=== PATIENT | female | born 1945 | race African-American/Black ===

== ENCOUNTER 2016-12-25 11:41 | Day surgery (SDC) | payer MEDICARE, MEDICAID ==
[~2016-12-25] VITALS: Ht 165.1 cm; Wt 90.9 kg
[~2016-12-25 11:41] MED LIST: AMITIZA24 MCG PO; BACLOFEN20 M1 PO; COLACE100 MG PO; DILANTIN100 MG PO; DULCOLAX10 MG/SUPP RC; HYDROCODON-ACE1 EAC9 PO; K-TAB10 MEQ PO; KEPPRA1000 MG PO; KEPPRA500 MG PO; LASIX20 MG PO; LEXAPRO10 MG PO; MACROBID100 MG PO; MIRALAX17 GM PO; MIRALAX527 GM; NYSTATIN1 PWD TP; NYSTATIN15 GM TOPICAL; PROVENTIL HFA6.7 GM INH; REMERON30 MG PO; TIROSINT25 MCG PO; TYLENOL650 MG PO; [UNRECOGNIZED DRUG - OTHER] PO
[2016-12-25] MEDS ORDERED: LINZESS145 MCG PO (13:08)
[2016-12-25 13:24] VITALS: BP 134/70; Ht 165.1 cm; Wt 90.9 kg
[2016-12-25 13:24] LABS: CALC OSMOLALITY 282 mosm/kg (275-300); CALCIUM 8.9 mg/dL (8.5-10.1); CARBON DIOXIDE 34.6 mmol/L (21.0-32.0); CHLORIDE - SERUM 102 mmol/L (98-107); CREATININE - SERUM 0.6 mg/dL (0.6-1.3); GLUCOSE 99 mg/dL (74-106); SODIUM 143 mmol/L (136-145); UREA NITROGEN 7 mg/dL (7-18); eGFR NON AFRICAN AMERICAN > 90 mL/min (90-120)
--- NOTE | 2016-12-25 13:40 | NUR ---
1300 PATIENT GIVEN WARM WATER ENEMA 1500CC AND PLACED ON BEDPAN NOW. 1315 PATIENT PASSED LARGE AMOUNT BROWN LIQUID, NO FORMED STOOL NOTED 1320 PATIENT GIVEN 750 CC WARM WATER ENEMA. PLACED ON BEDPAN 1330 PATIENT PASSED BROWN LIQUID AND GIVEN 750 WARM WATER ENEMA AND PLACED ON BEDPAN.
--- NOTE | 2016-12-25 13:49 | NUR ---
1340 CLEANED PATIENT STILL PASSING BROWN LIQUID. TOLD DR. ADKINS AND NO MORE ENEMAS ORDERED
[2016-12-25 14:20] LABS: BASOPHILS 0.2 % (0.0-2.0); EOSINOPHILS 0 % (0-7); HEMATOCRIT 42.1 % (36.0-48.0); LYMPHOCYTES 23.8 % (15-50); MCH 33.1 pg (26.0-34.0); MCHC 33.3 g/dL (31.0-37.0); MCV 99.5 fL (80.0-100.0); MEAN PLATELET VOLUME 10.7 fL (7.4-10.4); MONOCYTES 7.4 % (2-11); NEUTROPHILS 68.6 % (40-80); PLATELET COUNT 136 10x3/uL (130-400); RBC 4.23 10x6/uL (4.00-5.40); RDW 12.4 % (11.5-14.5); WBC 4.5 10x3/uL (4.8-10.8)
--- NOTE | 2016-12-25 15:19 | NUR ---
1455 BACK FROM COLONOSCOPY. O2 2L N/C RESP EVEN AND NONLABORED. PASSED AIR.
--- NOTE | 2016-12-25 16:53 | NUR ---
161O WENT OVER DISCHARGE INSTRUCTIONS. PORT FLUSHED WITH HEPARIN AND SALINE AND PARK NEEDLE DCD TIP INTACT. ASSISTED WITH MAGDALENO LIFT AND DAUGHTER TOOK PATIENT HOME AT 1615 AND UNDERSTANDS DISCHARGE INSTRUCTIONS.
--- NOTE | 2016-12-25 16:53 | NUR ---
1525 TOLERATED FULL LIQUIDS. REPOSITIONED IN BED PAD CHANGED. MCCLELLAND PATENT YELLOW COLORED URINE.
--- NOTE | 2016-12-25 18:37 | OP ---
PATIENT NAME: TESS FLOOD MEDICAL RECORD: [id number] :46 LOCATION:[facility] ADMISSION DATE: SURGEON: SANGEETA ADKINS MD DATE OF OPERATION: 12/25/2016 PROCEDURE: Colonoscopy. INDICATIONS: Ms. Flood is a delightful 71-year-old woman with a history of B-cell lymphoma (followed by Dr. Levi Logan), history of hepatitis C (untreated) and chronic constipation. She has intermittent right lower quadrant abdominal pain. She has been on Linzess, MiraLax, Metamucil, prunes and Dulcolax with mixed results regarding her constipation. Her last colonoscopy was in 2010, which showed several ascending colonic lipomas. She has a family history of colon cancer (mother). She presents for outpatient colonoscopy. PREMEDICATIONS: Total IV anesthesia (propofol 580 mg). INSTRUMENT: Olympus video colonoscope. DESCRIPTION OF THE PROCEDURE AND FINDINGS: After receiving informed consent, Ms. Flood was placed in left lateral decubitus position and sedated as per anesthesia. After achieving an adequate level of sedation, digital rectal exam was performed that showed no external hemorrhoidal tags, fissures or fistulas, normal sphincter tone, no palpable rectal masses. Colonoscope was introduced per rectally and advanced to the cecum. She had a long and redundant colon. There was a copious amount of thick liquid stool and indigestible food debris throughout the colon (poor prep). In the ascending colon were several nonobstructive lipomas, biopsied. Around the hepatic flexure and distal ascending colon, there were several lipomas, nonobstructing, biopsied. Within the cecum, was a 0.25 to 0.3 cm sessile polyp removed with biopsy forcep technique. Retroflexion in the rectum yielded poor visualization of the rectum secondary to thick liquid stool and formed stool. Withdrawal time was 8 minutes. Ms. Flood tolerated the procedure well, no immediate complications. ASSESSMENT: 1. Chronic constipation with poor prep. 2. Hepatic flexure/distal ascending colon lipoma, status post biopsy. 3. Small cecal polyp, status post polypectomy. RECOMMENDATIONS: 1. Followup histopathology. 2. Fiber rich diet. 3. Recommend MiraLax b.i.d. TRANSINT:[id number] Voice Confirmation ID: [id number] DOCUMENT ID: [id number] SANGEETA ADKINS MD at 1837 CC: NETTIE MARTINEZ MD and LEVI LOGAN MD [id number] DICTATION DATE: 12/25/16 1438 VAT HOUSE LABORER: 12/25/16 1834 [facility] 12/25/16 [facility] [address] [id number]
== END 2016-12-25 16:15 | disposition home or self-care (01) ==
LOC: D.OPS 11:41
PROVIDERS: Anesthesiology
DX: D17.79 Benign lipomatous neoplasm of other sites (principal); K63.5 Polyp of colon; Z80.0 Family history of malignant neoplasm of digestive organs; K59.09 Other constipation; C85.10 Unspecified B-cell lymphoma, unspecified site; B19.20 Unspecified viral hepatitis C without hepatic coma; Z79.899 Other long term (current) drug therapy

== ENCOUNTER → 2017-09-11 09:45 | Outpatient (CLI) | payer MEDICARE, MEDICAID ==
[2016-12-25 13:24] VITALS: BMI 33.3
[~2017-09-11 09:45] MED LIST changes: +LINZESS145 MCG PO
== END | disposition home or self-care (01) ==
LOC: D.MRI 09:45
DX: R22.1 Localized swelling, mass and lump, neck (principal)

== ENCOUNTER → 2017-09-17 14:14 | Outpatient (CLI) | payer MEDICARE, MEDICAID ==
[2016-12-25 13:24] VITALS: BMI 33.3
[2017-09-17 14:59] LABS: APPEARANCE HAZY (CLEAR); BILIRUBIN NEGATIVE (NEGATIVE); COLOR YELLOW (YELLOW); GLUCOSE NEGATIVE (NEGATIVE); KETONE NEGATIVE (NEGATIVE); NITRITE POSITIVE (NEGATIVE); PROTEIN NEGATIVE (NEGATIVE); UROBILINOGEN NORMAL (NORMAL)
[2017-09-17 15:00] LABS: BACTERIA MANY /hpf (NONE SEEN); EPITHELIAL CELLS 0-5 /hpf (0-5)
== END | disposition home or self-care (01) ==
LOC: D.LABREF 14:14
PROVIDERS: Family Medicine
DX: R30.0 Dysuria (principal)

== ENCOUNTER → 2017-10-15 14:34 | Outpatient (CLI) | payer MEDICARE, MEDICAID ==
[2016-12-25 13:24] VITALS: BMI 33.3
[2017-10-15 14:45] LABS: BASOPHILS 0.2 % (0-2); EOSINOPHILS 0 % (0-7); HEMATOCRIT 42.4 % (36.0-48.0); HEMOGLOBIN 13.6 g/dL (12-16); IMMATURE GRANULOCYTES 0.2 % (0-5); LYMPHOCYTES 25.4 % (15-50); MCH 30.7 pg (26.0-34.0); MCHC 32.1 g/dL (31.0-37.0); MCV 95.7 fL (80.0-100.0); MEAN PLATELET VOLUME 10.8 fL (7.4-10.4); MONOCYTES 8.5 % (2-11); NEUTROPHILS 65.7 % (40-80); PLATELET COUNT 153 10x3/uL (130-400); RBC 4.43 10x6/uL (4.00-5.40); RDW 15.6 % (11.5-14.5); WBC 4.2 10x3/uL (4.8-10.8)
[2017-10-15 15:05] LABS: APPEARANCE HAZY (CLEAR); BILIRUBIN NEGATIVE (NEGATIVE); COLOR YELLOW (YELLOW); GLUCOSE NEGATIVE (NEGATIVE); KETONE NEGATIVE (NEGATIVE); NITRITE POSITIVE (NEGATIVE); PROTEIN TRACE mg/dL (NEGATIVE); UROBILINOGEN NORMAL (NORMAL)
[2017-10-15 15:07] LABS: BACTERIA MANY /hpf (NONE SEEN); EPITHELIAL CELLS 0-5 /hpf (0-5); RED CELLS - URINE >50 /hpf (0-5)
[2017-10-15 15:20] LABS: ALBUMIN 3.5 g/dL (3.4-5.0); ALKALINE PHOSPHATASE 124 U/L (46-116); ALT (SGPT) 15 U/L (10-68); BILIRUBIN - TOTAL 0.84 mg/dL (0.2-1.3); CALC OSMOLALITY 278 mosm/kg (275-300); CALCIUM 8.8 mg/dL (8.5-10.1); CARBON DIOXIDE 36.1 mmol/L (21.0-32.0); CHLORIDE - SERUM 99 mmol/L (98-107); CREATININE - SERUM 0.7 mg/dL (0.6-1.3); GLUCOSE 85 mg/dL (74-106); POTASSIUM - SERUM 3.1 mmol/L (3.5-5.1); PROTEIN - SERUM 7.6 g/dL (6.4-8.2); SODIUM 141 mmol/L (136-145); UREA NITROGEN 9 mg/dL (7-18); eGFR NON AFRICAN AMERICAN 87 mL/min (90-120)
== END | disposition home or self-care (01) ==
LOC: D.LABREF 14:34
PROVIDERS: Nurse Practitioner
DX: N39.0 Urinary tract infection, site not specified (principal)

== ENCOUNTER 2017-10-31 09:55 | Emergency (ER) | payer MEDICARE, MEDICAID ==
[2016-12-25 13:24] VITALS: BMI 33.3
[2017-10-31 10:44] LABS: APPEARANCE HAZY (CLEAR); BILIRUBIN NEGATIVE (NEGATIVE); GLUCOSE NEGATIVE (NEGATIVE); KETONE NEGATIVE (NEGATIVE); NITRITE POSITIVE (NEGATIVE); PROTEIN NEGATIVE (NEGATIVE)
[2017-10-31 10:46] LABS: BACTERIA MODERATE /hpf (NONE SEEN); COLOR YELLOW (YELLOW); EPITHELIAL CELLS OCC /hpf (0-5); RED CELLS - URINE OCC /hpf (0-5); WHITE CELLS - URINE 0-5 /hpf (0-5)
[2017-10-31 10:47] LABS: BASOPHILS 0.2 % (0-2); EOSINOPHILS 0 % (0-7); HEMATOCRIT 44.2 % (36.0-48.0); HEMOGLOBIN 14.5 g/dL (12-16); IMMATURE GRANULOCYTES 0.2 % (0-5); LYMPHOCYTES 24.2 % (15-50); MCH 31.5 pg (26.0-34.0); MCHC 32.8 g/dL (31.0-37.0); MCV 96.1 fL (80.0-100.0); MEAN PLATELET VOLUME 10.3 fL (7.4-10.4); MONOCYTES 11.2 % (2-11); NEUTROPHILS 64.2 % (40-80); PLATELET COUNT 147 10x3/uL (130-400); RDW 15.9 % (11.5-14.5); WBC 4.2 10x3/uL (4.8-10.8)
[2017-10-31 11:12] LABS: ALBUMIN 3.7 g/dL (3.4-5.0); ALKALINE PHOSPHATASE 99 U/L (46-116); ALT (SGPT) 14 U/L (10-68); BILIRUBIN - TOTAL 1.05 mg/dL (0.2-1.3); CALC OSMOLALITY 278 mosm/kg (275-300); CALCIUM 9.1 mg/dL (8.5-10.1); CARBON DIOXIDE 39.1 mmol/L (21.0-32.0); CHLORIDE - SERUM 98 mmol/L (98-107); CREATININE - SERUM 0.6 mg/dL (0.6-1.3); GLUCOSE 107 mg/dL (74-106); POTASSIUM - SERUM 3.1 mmol/L (3.5-5.1); SODIUM 141 mmol/L (136-145); UREA NITROGEN 7 mg/dL (7-18); eGFR NON AFRICAN AMERICAN > 90 mL/min (90-120)
[2017-10-31 12:01] LABS: CREATINE KINASE 89 UL (21-215); MAGNESIUM - SERUM 1.7 mg/dL (1.8-2.4); PRO BNP 121 pg/mL (0-125); THYROID STIMULATING HORMONE 2.21 uIU/mL (0.36-3.74)
[2017-10-31 12:03] LABS: TROPONIN-I < 0.017 ng/mL (0.000-0.060)
== END 2017-10-31 15:25 | disposition home or self-care (01) ==
LOC: D.ER 09:55
PROVIDERS: Emergency Medicine; Nurse Practitioner Family
DX: N39.0 Urinary tract infection, site not specified (principal); E87.6 Hypokalemia; E83.42 Hypomagnesemia; F03.90 Unspecified dementia, unspecified severity, without behavioral disturbance, psychotic disturbance, mood disturbance, and anxiety; Z85.72 Personal history of non-Hodgkin lymphomas

== ENCOUNTER → 2018-02-03 10:29 | Outpatient (CLI) | payer MEDICARE, MEDICAID ==
[2016-12-25 13:24] VITALS: BMI 33.3
== END | disposition home or self-care (01) ==
LOC: D.MRI 02-02 10:00
DX: C85.89 Other specified types of non-Hodgkin lymphoma, extranodal and solid organ sites (principal)

== ENCOUNTER → 2018-03-10 12:35 | Outpatient (CLI) | payer MEDICARE, MEDICAID ==
[2016-12-25 13:24] VITALS: BMI 33.3
== END | disposition home or self-care (01) ==
LOC: D.LABREF 12:35
DX: N39.0 Urinary tract infection, site not specified (principal); R33.9 Retention of urine, unspecified

== ENCOUNTER 2018-03-27 10:55 | Emergency (ER) | payer MEDICARE, MEDICAID ==
[2016-12-25 13:24] VITALS: BMI 33.3
== END 2018-03-27 13:05 | disposition home or self-care (01) ==
LOC: D.ER 10:55
DX: T85.9XXA Unspecified complication of internal prosthetic device, implant and graft, initial encounter (principal)

== ENCOUNTER → 2018-06-17 15:31 | Outpatient (CLI) | payer MEDICARE, MEDICAID ==
[2016-12-25 13:24] VITALS: BMI 33.3
[2018-06-17 16:07] LABS: APPEARANCE SL CLDY (CLEAR); BILIRUBIN NEGATIVE (NEGATIVE); COLOR YELLOW (YELLOW); GLUCOSE NEGATIVE (NEGATIVE); KETONE NEGATIVE (NEGATIVE); NITRITE NEGATIVE (NEGATIVE); PROTEIN NEGATIVE (NEGATIVE); UROBILINOGEN NORMAL (NORMAL)
[2018-06-17 16:08] LABS: BACTERIA MODERATE /hpf (NONE SEEN); EPITHELIAL CELLS 0-5 /hpf (0-5); RED CELLS - URINE 0-5 /hpf (0-5); WHITE CELLS - URINE 0-5 /hpf (0-5)
== END | disposition home or self-care (01) ==
LOC: D.LABREF 15:31
PROVIDERS: Family Medicine
DX: N39.0 Urinary tract infection, site not specified (principal)

== ENCOUNTER → 2018-07-17 16:28 | Outpatient (CLI) | payer MEDICARE, MEDICAID ==
[2016-12-25 13:24] VITALS: BMI 33.3
[2018-07-17 17:20] LABS: APPEARANCE HAZY (CLEAR); BILIRUBIN NEGATIVE (NEGATIVE); COLOR YELLOW (YELLOW); GLUCOSE NEGATIVE (NEGATIVE); KETONE NEGATIVE (NEGATIVE); NITRITE NEGATIVE (NEGATIVE); PROTEIN NEGATIVE (NEGATIVE); SPECIFIC GRAVITY 1.015 (1.005-1.020); UROBILINOGEN NORMAL (NORMAL)
[2018-07-17 17:21] LABS: BACTERIA MANY /hpf (NONE SEEN); EPITHELIAL CELLS 0-5 /hpf (0-5); RED CELLS - URINE 0-5 /hpf (0-5); WHITE CELLS - URINE >50 /hpf (0-5)
== END | disposition home or self-care (01) ==
LOC: D.LABREF 16:28
PROVIDERS: Family Medicine
DX: N39.0 Urinary tract infection, site not specified (principal)

== ENCOUNTER → 2018-10-06 16:03 | Outpatient (CLI) | payer MEDICARE, MEDICAID ==
[2016-12-25 13:24] VITALS: BMI 33.3
[2018-10-06 16:46] LABS: APPEARANCE HAZY (CLEAR); BILIRUBIN NEGATIVE (NEGATIVE); COLOR YELLOW (YELLOW); GLUCOSE NEGATIVE (NEGATIVE); KETONE NEGATIVE (NEGATIVE); NITRITE NEGATIVE (NEGATIVE); PROTEIN TRACE mg/dL (NEGATIVE); SPECIFIC GRAVITY 1.015 (1.005-1.020)
[2018-10-06 16:57] LABS: BACTERIA MANY /hpf (NONE SEEN); EPITHELIAL CELLS 0-5 /hpf (0-5); WHITE CELLS - URINE 25-50 /hpf (0-5)
== END | disposition home or self-care (01) ==
LOC: D.LABREF 16:03
PROVIDERS: Family Medicine
DX: M54.9 Dorsalgia, unspecified (principal); R41.0 Disorientation, unspecified

== ENCOUNTER → 2018-11-09 15:02 | Outpatient (CLI) | payer MEDICARE, MEDICAID ==
[2016-12-25 13:24] VITALS: BMI 33.3
[2018-11-09 15:49] LABS: APPEARANCE CLOUDY (CLEAR); COLOR YELLOW (YELLOW); NITRITE POSITIVE (NEGATIVE); PROTEIN 1+ mg/dL (NEGATIVE)
[2018-11-09 15:50] LABS: AMORPHOUS SEDIMENT <1+ /lpf (NONE SEEN); BACTERIA MANY /hpf (NONE SEEN); BILIRUBIN NEGATIVE (NEGATIVE); EPITHELIAL CELLS 0-5 /hpf (0-5); GLUCOSE NEGATIVE (NEGATIVE); KETONE NEGATIVE (NEGATIVE)
== END | disposition home or self-care (01) ==
LOC: D.LABREF 15:02
PROVIDERS: Family Medicine
DX: R33.9 Retention of urine, unspecified (principal)

== ENCOUNTER → 2019-01-10 13:33 | Outpatient (CLI) | payer MEDICARE, MEDICAID ==
[2016-12-25 13:24] VITALS: BMI 33.3
[2019-01-10 15:06] LABS: APPEARANCE CLOUDY (CLEAR); BILIRUBIN NEGATIVE (NEGATIVE); COLOR YELLOW (YELLOW); GLUCOSE NEGATIVE (NEGATIVE); KETONE NEGATIVE (NEGATIVE); NITRITE POSITIVE (NEGATIVE); PROTEIN NEGATIVE (NEGATIVE); RED CELLS - URINE RARE /hpf (0-5); WHITE CELLS - URINE 0-5 /hpf (0-5)
[2019-01-10 15:07] LABS: AMORPHOUS SEDIMENT <1+ /lpf (NONE SEEN); BACTERIA MANY /hpf (NONE SEEN); EPITHELIAL CELLS 0-5 /hpf (0-5); MUCUS <1+ /lpf (NONE SEEN)
== END | disposition home or self-care (01) ==
LOC: D.LABREF 13:33
PROVIDERS: ATTEND Family Medicine
DX: R52 Pain, unspecified (principal); Z87.440 Personal history of urinary (tract) infections

== ENCOUNTER → 2019-02-23 20:26 | Outpatient (CLI) | payer MEDICARE, MEDICAID ==
[2016-12-25 13:24] VITALS: BMI 33.3
[2019-02-23 21:16] LABS: APPEARANCE HAZY (CLEAR); BILIRUBIN NEGATIVE (NEGATIVE); COLOR YELLOW (YELLOW); GLUCOSE NEGATIVE (NEGATIVE); KETONE NEGATIVE (NEGATIVE); NITRITE POSITIVE (NEGATIVE); PROTEIN TRACE mg/dL (NEGATIVE); UROBILINOGEN NORMAL (NORMAL)
[2019-02-23 21:17] LABS: BACTERIA MANY /hpf (NONE SEEN); EPITHELIAL CELLS 0-5 /hpf (0-5); RED CELLS - URINE >50 /hpf (0-5)
== END | disposition home or self-care (01) ==
LOC: D.LABREF 20:26
PROVIDERS: ATTEND Family Medicine
DX: R30.0 Dysuria (principal); N31.9 Neuromuscular dysfunction of bladder, unspecified

== ENCOUNTER 2019-07-24 14:35 | Inpatient (IN) | payer MEDICARE, MEDICAID ==
[~2019-07-24] VITALS: Ht 165.1 cm; Wt 149.2 kg
[2019-07-24] MEDS ORDERED: AMITRIPTYLINE H50 MG PO (14:38)
[2019-07-24] MEDS ORDERED: ZYPREXA2.5 MG PO (14:40)
[2019-07-24] MEDS ORDERED: ZYLOPRIM100 MG PO (14:40)
[2019-07-24] MEDS ORDERED: DONEPEZIL HCL10 MG PO (14:41)
[2019-07-24] MEDS ORDERED: MULTI-DAY VITAM1 TAB PO (14:42)
[2019-07-24] MEDS ORDERED: MACRODANTIN50 MG PO (14:42)
[2019-07-24] MEDS ORDERED: AZO STANDARD95 MG PO (14:43)
[2019-07-24] MEDS ORDERED: PROBIOTIC1 EAC1 PO (14:44)
[2019-07-24] MEDS ORDERED: MELATONIN10 M1 PO (14:45)
[2019-07-24 15:08] LABS: BASOPHILS 0.3 % (0-2); EOSINOPHILS 0 % (0-7); HEMATOCRIT 41.8 % (36.0-48.0); HEMOGLOBIN 12.2 g/dL (12-16); LYMPHOCYTES 19.1 % (15-50); MCH 23.4 pg (26.0-34.0); MCHC 29.2 g/dL (31.0-37.0); MCV 80.1 fL (80.0-100.0); MONOCYTES 11.5 % (2-11); NEUTROPHILS 68.1 % (40-80); RBC 5.22 10x6/uL (4.00-5.40); RDW 19.3 % (11.5-14.5); WBC 3.9 10x3/uL (4.8-10.8)
[2019-07-24 15:10] LABS: PLATELET COUNT 104 10x3/uL (130-400)
[2019-07-24 15:14] LABS: APPEARANCE CLEAR (CLEAR); BILIRUBIN NEGATIVE (NEGATIVE); COLOR STRAW (YELLOW); GLUCOSE NEGATIVE (NEGATIVE); KETONE NEGATIVE (NEGATIVE); NITRITE POSITIVE (NEGATIVE); PROTEIN NEGATIVE (NEGATIVE)
[2019-07-24 15:20] LABS: BACTERIA MODERATE /hpf (NEGATIVE); EPITHELIAL CELLS NSEEN /hpf (0-5); RED CELLS - URINE NONE SEEN /hpf (0-5); WHITE CELLS - URINE 0-5 /hpf (NEGATIVE)
[2019-07-24 15:21] LABS: YEAST >1+ /hpf (NONE SEEN)
[2019-07-24 15:23] LABS: ALBUMIN 3.2 g/dL (3.4-5.0); ALKALINE PHOSPHATASE 82 U/L (46-116); ALT (SGPT) 25 U/L (10-68); CALC OSMOLALITY 285 mosm/kg (275-300); CALCIUM 8.1 mg/dL (8.5-10.1); CHLORIDE - SERUM 103 mmol/L (98-107); CREATININE - SERUM 0.6 mg/dL (0.6-1.3); GLUCOSE 101 mg/dL (74-106); POTASSIUM - SERUM 4.1 mmol/L (3.5-5.1); PROTEIN - SERUM 7.1 g/dL (6.4-8.2); SODIUM 143 mmol/L (136-145); UREA NITROGEN 15 mg/dL (7-18); eGFR NON AFRICAN AMERICAN > 90 mL/min (90-120)
[2019-07-24 16:12] VITALS: BP 151/72
--- NOTE | 2019-07-24 16:13 | NUR ---
PATIENT AWAKE AND APPEARS DROWSY, NO NEEDS NOTED; FAMILY AT BEDSIDE; UPDATED ON PLAN OF CARE AND DELAYS IN CARE; WILL CONTINUE TO MONITOR.
--- NOTE | 2019-07-24 18:19 | NUR ---
PT ARRIVED VIA BED TO ROOM. NO FAMILY PRESENT AT THIS TIME, PT STATES SHE WANTS TO WAIT UNTIL HER DAUGHTER GETS HERE TO DO MEDICATIONS BECAUSE SHE IS UNCOMFORTABLE WITH WHAT SHE TAKES RIGHT NOW. PT STATES SHE IS COMFORTABLE AND HAS NO NEEDS RIGHT NOW. REARRANGED IN BED, DENIES WANTING TO WATCH TELIVISION. PT IS A/OX4 AT THIS TIME. CHRONIC CATH IN PLACE AND WORKING WNL. CL IN REACH, SRX2. BED LOW/LOCKED
[2019-07-24] MEDS ORDERED: KEPPRA1000 MG PO (19:14)
--- NOTE | 2019-07-24 19:15 | NUR ---
RECEIVED REPORT, WILL ASSUME CARE OF PT, PT IS RESTING, DAUGHTER IN ROOM, WENT OVER MEDS, WITH DAUGHTER, BED IS LOW, SRX3, CALL LIGHT IN REACH, BED ALARM IS ON, WILL CONTINUE PLAN OF CARE
[2019-07-24 20:00] VITALS: BP 126/65
[2019-07-25] VITALS (7 sets, daily range): BP systolic 110–150; BP diastolic 55–76; BMI 33.3
--- NOTE | 2019-07-25 02:12 | NUR ---
I have reviewed this patient and I concur with the Shift Assessment completed by the Licensed Practical Nurse today this shift.
--- NOTE | 2019-07-25 02:14 | NUR ---
ADMISSION ASSESSMENT COMPLETED AT THIS TIME. PLAN OF CARE INITIATED.
[2019-07-25 05:07] LABS: BASOPHILS 0.2 % (0-2); EOSINOPHILS 0 % (0-7); HEMATOCRIT 42.3 % (36.0-48.0); HEMOGLOBIN 12.2 g/dL (12-16); IMMATURE GRANULOCYTES 0.2 % (0-5); LYMPHOCYTES 11.3 % (15-50); MCH 23.1 pg (26.0-34.0); MCHC 28.8 g/dL (31.0-37.0); MCV 80.3 fL (80.0-100.0); MONOCYTES 12.2 % (2-11); NEUTROPHILS 76.1 % (40-80); PLATELET COUNT 106 10x3/uL (130-400); RBC 5.27 10x6/uL (4.00-5.40); RDW 19.3 % (11.5-14.5); WBC 4.5 10x3/uL (4.8-10.8)
[2019-07-25 05:19] LABS: ALKALINE PHOSPHATASE 80 U/L (46-116); ALT (SGPT) 21 U/L (10-68); BILIRUBIN - TOTAL 1.38 mg/dL (0.2-1.3); CALC OSMOLALITY 283 mosm/kg (275-300); CALCIUM 8.2 mg/dL (8.5-10.1); CARBON DIOXIDE 38.7 mmol/L (21.0-32.0); CHLORIDE - SERUM 102 mmol/L (98-107); CREATININE - SERUM 0.6 mg/dL (0.6-1.3); GLUCOSE 96 mg/dL (74-106); POTASSIUM - SERUM 4.7 mmol/L (3.5-5.1); PROTEIN - SERUM 6.7 g/dL (6.4-8.2); SODIUM 143 mmol/L (136-145); eGFR NON AFRICAN AMERICAN > 90 mL/min (90-120)
[2019-07-25 06:05] LABS: UREA NITROGEN 11 mg/dL (7-18)
--- NOTE | 2019-07-25 07:36 | NUR ---
PT AWAKE AND ORIENTED AT THIS TIME, NO FAMILY PRESENT AT BEDSIDE. RN ATTEMPTED TO ACCESS PORT, WAS UNSUCCESFUL. WILL REATTEMPT. NO COMPLAINTS/CONCERNS AT THIS TIME. CL IN REACH, SRX2.
[2019-07-25 11:20] LABS: APTT 33.4 SECONDS (22.8-39.4); INR 1.12 (0.85-1.17); PROTIME 13.9 SECONDS (11.6-15.0)
--- NOTE | 2019-07-25 18:40 | NUR ---
PT HAS BEEN CONFUSED/DISORIENTED BUT PLESANTLY SO. THINKS SHE WILL GOING HOME, INFORMED HER OTHERWISE. DAUGHTER HAS CALLED MULTIPLE TIMES. NO COMPLAINTS/CONCERNS AT THIS TIME. REMOVED OLD CATHETER PER STERILE NURSING PROTOCOL, REPLACED WITH 20F CATHETER PER STERILE NURSING PROTOCOL. NO COMPLAINTS/CONCERNS VOICED. OFFERED TO PUT EGG CRATE MATRESS, PT DENIED IT AT THIS TIME. CL IN REACH,S RX2, BED ALARM ON WORKING WNL.
--- NOTE | 2019-07-25 19:27 | NUR ---
RECIEVED BEDSIDE REPORT. RECIEVED UP IN BED WITH EYES OPEN AND TV ON. ALERT AND ORIENTED X3. IV TO LEFT CHEST PORT. DSG CDI. PLEASANT AND TALKATIVE. F/C INTACT WITH CLEAR YELLOW URINE DRAINING TO BEDSIDE DRAINAGE BAG. DENIES ANY NEEDS AT THIS TIME, WILL CONT. POC.
[2019-07-26] VITALS (7 sets, daily range): BP systolic 132–155; BP diastolic 62–78
[2019-07-26 05:05] LABS: BASOPHILS 0 % (0-2); EOSINOPHILS 0 % (0-7); HEMATOCRIT 41.4 % (36.0-48.0); IMMATURE GRANULOCYTES 0.2 % (0-5); LYMPHOCYTES 15.3 % (15-50); MCH 22.9 pg (26.0-34.0); MCV 79.2 fL (80.0-100.0); MONOCYTES 10.3 % (2-11); NEUTROPHILS 74.2 % (40-80); PLATELET COUNT 109 10x3/uL (130-400); RBC 5.23 10x6/uL (4.00-5.40); RDW 19.3 % (11.5-14.5); WBC 4.3 10x3/uL (4.8-10.8)
[2019-07-26 05:43] LABS: ALBUMIN 3.1 g/dL (3.4-5.0); ALKALINE PHOSPHATASE 74 U/L (46-116); ALT (SGPT) 16 U/L (10-68); BILIRUBIN - TOTAL 1.36 mg/dL (0.2-1.3); CALC OSMOLALITY 279 mosm/kg (275-300); CALCIUM 8.4 mg/dL (8.5-10.1); CARBON DIOXIDE 37.7 mmol/L (21.0-32.0); CHLORIDE - SERUM 101 mmol/L (98-107); CREATININE - SERUM 0.6 mg/dL (0.6-1.3); GLUCOSE 112 mg/dL (74-106); MAGNESIUM - SERUM 1.5 mg/dL (1.8-2.4); POTASSIUM - SERUM 3.9 mmol/L (3.5-5.1); PROTEIN - SERUM 7.1 g/dL (6.4-8.2); SODIUM 141 mmol/L (136-145); UREA NITROGEN 8 mg/dL (7-18); eGFR NON AFRICAN AMERICAN > 90 mL/min (90-120)
--- NOTE | 2019-07-26 12:15 | NUR ---
REPORT RECIEVED. PT CURRENTLY ON 3L NC, SHE HAS A L CHEST PORT INFUSING NS @ 100. SHE HAS A CRONIC CATH DRAINING URINE. BED ALARM ON AND WORKING. BED LOCKED AND IN LOWEST POSITION, CALL LIGHT WITHIN REACH. WILL CTM
--- NOTE | 2019-07-26 15:39 | NUR ---
I have reviewed this patient and I concur with the Shift Assessment completed by the Licensed Practical Nurse today this shift.
--- NOTE | 2019-07-26 20:00 | NUR ---
ALERT CONFUSED, SITTING UP IN BED FIGITING WITH BLANKET AND MCCLELLAND CATH, RESP UNLABORED O2 IN CONTINOUS USE, SEE SHIFT ASSESSMENT CALL LIGHT IN REACH,
[2019-07-27 04:00] VITALS: BP 120/58; BP 137/76
[2019-07-27 06:32] LABS: BASOPHILS 0.3 % (0-2); EOSINOPHILS 0 % (0-7); HEMATOCRIT 40.5 % (36.0-48.0); HEMOGLOBIN 11.7 g/dL (12-16); IMMATURE GRANULOCYTES 0.3 % (0-5); MCH 22.9 pg (26.0-34.0); MCHC 28.9 g/dL (31.0-37.0); MCV 79.1 fL (80.0-100.0); MONOCYTES 9.6 % (2-11); NEUTROPHILS 71.8 % (40-80); PLATELET COUNT 103 10x3/uL (130-400); RBC 5.12 10x6/uL (4.00-5.40); WBC 3.8 10x3/uL (4.8-10.8)
[2019-07-27 06:57] LABS: ALBUMIN 2.8 g/dL (3.4-5.0); ALKALINE PHOSPHATASE 70 U/L (46-116); ALT (SGPT) 18 U/L (10-68); BILIRUBIN - TOTAL 1.58 mg/dL (0.2-1.3); CALCIUM 8.2 mg/dL (8.5-10.1); CHLORIDE - SERUM 103 mmol/L (98-107); CREATININE - SERUM 0.5 mg/dL (0.6-1.3); GLUCOSE 84 mg/dL (74-106); MAGNESIUM - SERUM 1.6 mg/dL (1.8-2.4); PROTEIN - SERUM 6.6 g/dL (6.4-8.2); SODIUM 145 mmol/L (136-145); eGFR NON AFRICAN AMERICAN > 90 mL/min (90-120)
[2019-07-27 07:04] LABS: CALC OSMOLALITY 284 mosm/kg (275-300); POTASSIUM - SERUM 3.2 mmol/L (3.5-5.1); UREA NITROGEN 5 mg/dL (7-18)
[2019-07-27 07:06] LABS: CARBON DIOXIDE 41.4 mmol/L (21.0-32.0)
[2019-07-27 08:00] VITALS: BP 155/80
--- NOTE | 2019-07-27 10:58 | NUR ---
RESTING IN BED WITH EYES OPEN, PATIENT IS SLEEPY. DR. NAIDU AT BEDSIDE FOR ROUNDS. NO DISTRESS. CALL LIGHT WITHIN REACH.
--- NOTE | 2019-07-27 11:58 | NUR ---
PATIENTS DAUGHTER SHEILA CALLED TO CHECK ON PATIENT SINCE SHE LEFT THIS AM. CONCERNED WITH PATIENT WHEEZING, THIS CHAR PULLER NOR THE PULMONOLGIST HEARD PATIENT WHEEZING DURING EITHER ASSESSMENT. RAMSEYTENT DAUGHTER WANTED THE SCDS APPLIED BECAUSE HE MOM IS SPOKEN IN LOWER LEGS AND FEET. EXPLAINED THAT THE SCDs ARE NOT GOING TO MAKE THE SWELLING GO AWAY AND THAT SHE IS ON LOVENOX FOR DVT COVERAGE. PATIENT DAUGHTER THEN STATED SHE DID NOT WANT THE SCDS. PATIENT DAUGHTER STATED SHE FOUND HER MOM THIS MORNING ASLEEP IN FRONT OF [employer]AKFAST TRAY AND REQUESTED THAT AT NOON MEAL, FOR PATIENT TO BE WOKE UP. INFORMED HER WE DO WAKE THE PATIENTS UP TO LET THEM KNOW THEIR FOOD IS THERE. PATEINTS DAUGHTER THANKED THIS CHAR PULLER AND WILL BE BACK THIS AFTERNOON.
[2019-07-27 12:04] VITALS: BP 138/72
--- NOTE | 2019-07-27 12:29 | NUR ---
PATIENT SITTING UP IN BED CONSUMING [employer], PATIENT EATING SANDWHICH. NO DISTRESS. CALL LIGHT WITHIN REACH.
[2019-07-27 13:48] VITALS: Ht 165.1 cm; Wt 149.2 kg
[2019-07-27 15:07] VITALS: BP 141/64
--- NOTE | 2019-07-27 16:16 | NUR ---
PATIENTS DAUGHTER CALLED AGAIN TO CHECK ON PATIENT. SHE WILL BE BACK UP HERE FOR DINNER MEAL.
--- NOTE | 2019-07-27 18:30 | NUR ---
PATIENTS DAUGHTER CALLED AGAIN TO CHECK ON PATIENT. NOTHING NEW TO REPORT. PATIENTS DAUGHTER KEEPS SAYING SHE IS COMING UP TO SEE THE PATIENT BUT NEVER MAKES IT DURING THIS SHIFT SO FAR. PATIENT IS RESTING WELL. NO DISTRESS.
[2019-07-27 20:00] VITALS: BP 134/74
--- NOTE | 2019-07-27 20:00 | NUR ---
ALERT AND CONFUSED RESTING IN BED DENIES PAIN, SEE ASSESSMENT, CALL LIGHT IN REACH
--- NOTE | 2019-07-27 23:15 | NUR ---
EXPLAINED BENEFITS OF COMPLIANCE TO THE BIPAP HOWEVER PT CONTINUALLY REFUSED TO WEAR.
[2019-07-28] VITALS: BP 132/70
--- NOTE | 2019-07-28 01:10 | NUR ---
PT HAS NOW REFUSED TO WEAR BIPAP AGAIN
[2019-07-28 04:00] VITALS: BP 126/71
[2019-07-28 05:49] LABS: ALBUMIN 2.7 g/dL (3.4-5.0); ALKALINE PHOSPHATASE 67 U/L (46-116); ALT (SGPT) 16 U/L (10-68); BILIRUBIN - TOTAL 1.21 mg/dL (0.2-1.3); CALCIUM 8.4 mg/dL (8.5-10.1); CHLORIDE - SERUM 102 mmol/L (98-107); CREATININE - SERUM 0.6 mg/dL (0.6-1.3); GLUCOSE 85 mg/dL (74-106); MAGNESIUM - SERUM 1.6 mg/dL (1.8-2.4); PROTEIN - SERUM 6.7 g/dL (6.4-8.2); SODIUM 144 mmol/L (136-145); eGFR NON AFRICAN AMERICAN > 90 mL/min (90-120)
[2019-07-28 06:36] LABS: CALC OSMOLALITY 284 mosm/kg (275-300); POTASSIUM - SERUM 4.1 mmol/L (3.5-5.1); UREA NITROGEN 9 mg/dL (7-18)
[2019-07-28 06:38] LABS: CARBON DIOXIDE 41.4 mmol/L (21.0-32.0)
[2019-07-28 07:41] LABS: HEMATOCRIT 40.7 % (36.0-48.0); HEMOGLOBIN 11.8 g/dL (12-16); MCH 22.9 pg (26.0-34.0); MCV 78.9 fL (80.0-100.0); PLATELET COUNT 104 10x3/uL (130-400); RBC 5.16 10x6/uL (4.00-5.40); RDW 19.1 % (11.5-14.5); WBC 3.3 10x3/uL (4.8-10.8)
[2019-07-28 09:51] VITALS: BP 103/52
[2019-07-28 09:56] LABS: LYMPHOCYTES 22 % (15-50); MONOCYTES 13 % (2-11); NEUTROPHILS 64 % (40-80); PLATELET ESTIMATE DECREASED
[2019-07-28 09:57] LABS: ANISOCYTOSIS OCC; HYPOCHROMASIA OCC
[2019-07-28 12:56] VITALS: BP 99/54
--- NOTE | 2019-07-28 14:40 | MORECARE ---
CASE MANAGEMENT DISCHARGE SUMMARY PATIENT: TESS OTERO UNIT: [id number] ADM DATE: 07/24/19 AGE: 74 : 46 SEX: F ROOM/BED: D.2101 AUTHOR: ENRIKE AKHTAR PHYSICIAN: REFERRING PHYSICIAN: ANANT ODONNELL MD DATE OF SERVICE: 07/28/19 Discharge Plan Patient Name: TESS OTERO Facility: [facility]:[place] : 1945 Planned Disposition: Anticipated Discharge Date: Discharge Date: Expected LOS: Initial Reviewer: [email or web address] Initial Review Date: 07/28/2019 Generated: 07/28/19 3:40 pm Comments DCP- Discharge Planning Updated by [id number]: Tamara Burk on 07/28/19 1:[address] Patient Name: TESS OTERO Admission Status: ER Accout number: [id number] Admission Date: 07-24-2019 : 1945 Admission Diagnosis:DISORIENTATION, UNSPECIFIED Attending: ANANT SCHMID Current LOS: 4 Anticipated DC Date: Planned Disposition: Primary Insurance: [facility] MED[employer] SOLUTIONS Discharge Planning Comments: CM WENT TO MEET WITH PATIENT ABOUT DC PLANNING. THERE IS A SILICATOR AT BEDSIDE AND STATES TO CALL PATIENT'S DAUGHTER TAMARA. SHE DOES HAVE HH WITH [facility]. CM WILL FOLLOW UP WITH DAUGHTER ABOUT DC PLANNING. Atomic Welder: Tamara Burk DCPIA - Discharge Planning Initial Assessment Updated by [id number]: Tamara Burk on 07/28/19 2:38 pm * Community resources currently utilized Home Health * Please name any agencies selected above. [facility] Patient Name: TESS OTERO Page [id number] at 1440 All edits/amendments must be made on the electronic document DICTATION DATE: 07/28/191438 SWITCH FOREMAN: TOSHIA 07/28/19 143 RPT#: [id number] DC DATE: STATUS: ADM IN [facility] [address] [place] [address] END OF REPORT
[2019-07-28 17:27] VITALS: BP 117/60
--- NOTE | 2019-07-28 19:22 | NUR ---
BEDSIDE REPORT RECEIVED FROM DAY SHIFT, PT CARE ASSUMED. INTRODUCED SELF AND WROTE NAME ON BOARD. PT LYING IN BED, WATCHING TV. DENIES ANY NEEDS AT THIS TIME. BED IN LOWEST POSITION, SR X3, CALL LIGHT WITHIN REACH. WILL CONTINUE TO MONITOR.
[2019-07-28 20:00] VITALS: BP 142/68
[2019-07-29] VITALS: BP 116/62
[2019-07-29 04:00] VITALS: BP 124/57
[2019-07-29 07:18] LABS: ALBUMIN 2.7 g/dL (3.4-5.0); ALKALINE PHOSPHATASE 70 U/L (46-116); ALT (SGPT) 16 U/L (10-68); BILIRUBIN - TOTAL 0.96 mg/dL (0.2-1.3); CALCIUM 9.2 mg/dL (8.5-10.1); CHLORIDE - SERUM 99 mmol/L (98-107); CREATININE - SERUM 0.7 mg/dL (0.6-1.3); GLUCOSE 104 mg/dL (74-106); MAGNESIUM - SERUM 1.8 mg/dL (1.8-2.4); POTASSIUM - SERUM 3.7 mmol/L (3.5-5.1); PROTEIN - SERUM 6.6 g/dL (6.4-8.2); SODIUM 142 mmol/L (136-145); eGFR NON AFRICAN AMERICAN 87 mL/min (90-120)
[2019-07-29 07:22] LABS: BASOPHILS 0.2 % (0-2); EOSINOPHILS 0 % (0-7); HEMATOCRIT 39.7 % (36.0-48.0); HEMOGLOBIN 11.3 g/dL (12-16); IMMATURE GRANULOCYTES 0.5 % (0-5); MCH 22.5 pg (26.0-34.0); MCHC 28.5 g/dL (31.0-37.0); MCV 78.9 fL (80.0-100.0); MONOCYTES 13.6 % (2-11); NEUTROPHILS 64.7 % (40-80); PLATELET COUNT 104 10x3/uL (130-400); RBC 5.03 10x6/uL (4.00-5.40); RDW 19.4 % (11.5-14.5)
[2019-07-29 07:24] LABS: WBC 4.3 10x3/uL (4.8-10.8)
[2019-07-29 07:29] LABS: CALC OSMOLALITY 282 mosm/kg (275-300); UREA NITROGEN 13 mg/dL (7-18)
[2019-07-29 07:30] LABS: CARBON DIOXIDE 44.1 mmol/L (21.0-32.0)
[2019-07-29 08:00] VITALS: BP 126/61
--- NOTE | 2019-07-29 09:14 | EC ---
PATIENT:TESS OTERO DATE OF SERVICE: 07/24/19 SEX: F MEDICAL RECORD: [id number] DATE OF : [birth year] LOCATION:D.M2 D.210 AGE OF PATIENT: 74 ADMISSION DATE: 07/24/19 REFERRING PHYSICIAN: INTERPRETING PHYSICIAN: AKIRA FRANCO MD ECHOCARDIOGRAM REPORT ECHO CHARGES 4 ECHO COMPLETE Date: 07/27/19 CLINICAL DIAGNOSIS: CHF, PULMONARY EDEMA ECHOCARDIOGRAPHIC MEASUREMENTS (adult normal given) AC root (d.<3.7cm) 2.6 cm LV Septum d (<1.2 cm> 1.1 cm Valve Excursion 1.8 cm LV Septum (systole) 1.4 cm Left Atria (s.<4.0cm> 3.0 cm LVPW d(<1.2cm) 1.2 cm RV (d.<2.3cm) 2.4 cm LVPW (sytole) 1.6 cm LV diastole(<5.6CM) 5.4 cm MV E-F(>70mm/sec) cm LV systole 4.5 cm LVOT Diameter 1.9 cm MV exc.(>10mm) cm Est.ejection fraction (50-75%) % DOPPLER: LVIT cm/sec A 101 cm/sec E 0 cm/sec LA cm/sec RVSP 27.6 mmHg LVOT 176 cm/sec AOP1/2T m/s Asc. Ao 192 cm/sec RVOT 104 cm/sec RA cm/sec PA 99 cm/sec AV Gradient Peak 14.8 mmHg AV Mean 8.8 mmHg AV Area 2.8 cm MV Gradient Peak 6.9 mmHg MV Mean 4.1 mmHg MV Area cm COMMENTS: Assistant Women'S Tennis Coach: Yonis CADENA Machinist Tool [employer]: 1 Dr. Franco TAPE# PACS Pericardial Effusion N DATE OF SERVICE: 07/27/2019 PROCEDURE: Echocardiogram. FINDINGS: 1. Left ventricular chamber size is within normal limits. Left ventricular systolic function is normal. Overall ejection fraction estimated at 55% to 60%. 2. Left atrium, right atrium, and right ventricular chamber sizes are within normal limits. 3. Valvular structures have normal structure and motion. ECHOCARDIOGRAM REPORT [id number] TESS OTERO 4. Doppler interrogation reveals only trace tricuspid regurgitation, no other valvular insufficiency or stenosis. Pulmonary systolic pressure is estimated at 28 mmHg. 5. No evidence of pericardial effusion or left ventricular thrombus. TRANSINT:[id number] Voice Confirmation ID: [id number] DOCUMENT ID: [id number] AKIRA FRANCO MD at 0914 CC: [id number] DICTATION DATE: 07/27/19 1241 INSTRUCTOR APPAREL MANUFACTURE: 07/27/19 1338 ADM IN [facility] [address] [place] [address]
[2019-07-29 12:00] VITALS: BP 142/64
[2019-07-29 16:00] VITALS: BP 113/58
--- NOTE | 2019-07-29 16:32 | NUR ---
OT NOTE: PT COMPLETED BUE AROM EXS. PT COMPLETED FACE AND HAND WASH WITH SETUP. THANK YOU, BETH BOWENS
--- NOTE | 2019-07-29 19:14 | NUR ---
BEDSIDE REPORT RECEIVED FROM DAY SHIFT, PT CARE ASSUMED. WROTE NAME ON BOARD, PT SITTING UP IN BED, AWAKE AND ALERT. FAMILY AT BEDSIDE. DENIES ANY NEEDS AT THIS TIME. BED IN LOWEST POSITION, SR X3, CALL LIGHT WITHIN REACH. WILL CONTINUE TO MONITOR.
[2019-07-29 20:00] VITALS: BP 147/74
[2019-07-30] VITALS: BP 155/86
[2019-07-30 03:07] LABS: IMMUNOGLOBULIN E 2 IU/mL (6-495)
[2019-07-30 04:30] VITALS: BP 132/75
[2019-07-30 06:37] LABS: ALBUMIN 2.8 g/dL (3.4-5.0); ALKALINE PHOSPHATASE 72 U/L (46-116); ALT (SGPT) 20 U/L (10-68); BILIRUBIN - TOTAL 0.87 mg/dL (0.2-1.3); CALC OSMOLALITY 282 mosm/kg (275-300); CALCIUM 9.3 mg/dL (8.5-10.1); CHLORIDE - SERUM 97 mmol/L (98-107); CREATININE - SERUM 0.7 mg/dL (0.6-1.3); GLUCOSE 118 mg/dL (74-106); MAGNESIUM - SERUM 1.7 mg/dL (1.8-2.4); POTASSIUM - SERUM 3.5 mmol/L (3.5-5.1); PROTEIN - SERUM 6.9 g/dL (6.4-8.2); SODIUM 142 mmol/L (136-145); UREA NITROGEN 11 mg/dL (7-18); eGFR NON AFRICAN AMERICAN 87 mL/min (90-120)
[2019-07-30 06:53] LABS: BASOPHILS 0.3 % (0-2); EOSINOPHILS 0 % (0-7); HEMATOCRIT 42.9 % (36.0-48.0); HEMOGLOBIN 11.7 g/dL (12-16); LYMPHOCYTES 17.8 % (15-50); MCH 22.6 pg (26.0-34.0); MCHC 27.3 g/dL (31.0-37.0); MONOCYTES 11.5 % (2-11); NEUTROPHILS 70.4 % (40-80); PLATELET COUNT 112 10x3/uL (130-400); RBC 5.18 10x6/uL (4.00-5.40); RDW 19.5 % (11.5-14.5)
[2019-07-30 06:54] LABS: CARBON DIOXIDE 48.4 mmol/L (21.0-32.0)
[2019-07-30 06:59] LABS: MCV 82.8 fL (80.0-100.0)
--- NOTE | 2019-07-30 08:15 | NUR ---
PT'S DAUGHTER AT BEDSIDE AND I SPOKE WITH HER AND GAVE HER AN UPDATE. PT ALERT BUT ONLY ORIENTED TO SELF. PT HAS NO FURTHER NEEDS AT THIS TIME. BED LOW. CL IN REACH.
[2019-07-30 08:20] VITALS: BP 117/53
--- NOTE | 2019-07-30 08:32 | NUR ---
PATIENTS VENOUS CO2 CONTINUES TO RAISE. HER OXYGEN LITERS HAVE BEEN 4-5 WITH SATS 96-98%. I DECREASED HER TO 3L AND AFTER 20 MINUTES, TYE CHRISTIANSON RECHECKED THE SATS AND THEY ARE 93%. I HAVE SPOKE WITH BOTH MEGAHN AND EMERALD HENRY BEDSIDE NURSE, AND FOR NOW, WE ARE GOING TO LEAVE HER AT 3L AND JUST MONITOR FOR A DROP IN SATS.
[2019-07-30 12:13] VITALS: BP 125/65
--- NOTE | 2019-07-30 12:45 | NUR ---
Nutrition Follow-up: Family reports appetite/PO intake fluctuates. Likes Ensure (strawberry or vanilla). Being seen by ST who rec to continue with mechanical soft, ground meats with gravy and thin liquids. Diet: Cardiac, Mech Soft, Ground Meats with Gravy and Thin Liquids PO intake: 25-50% Wt: 298# Last BM: 07/30 Labs reviewed Meds reviewed Continue current diet as tolerated. Boley food preferences within diet restrictions. Ensure with meals. RD following.
--- NOTE | 2019-07-30 13:36 | NUR ---
LT CHEST INFUSAPORT DRESSING CHANGED USING STERILE TECHNIQUE AND CHANGED PRN ADAPTER AND PLACED ON SWAB CAP.
--- NOTE | 2019-07-30 14:44 | NUR ---
OT NOTE:PT COMPLETED BED BATH TASKS WITH MAX A FOR LES. PT COMPLETED BUE AROM AXS. THANK YOU, BETH BOWENS
--- NOTE | 2019-07-30 15:33 | NUR ---
PT'S DAUGHTER UPSET AND SPOKE WITH ANOTHER NURSE ON THE PHONE AND STATED "I AM GETTING PISSED OFF MY MOTHER STATES SHE HAS NO RECVEIVED HER LUNCH TRAY." ANOTHER NURSE STATES TO HER THAT I(HER NURSE) IS IN ANOTHER ROOM AT THIS TIME. PT'S DAUGHTER STATES "SHE IS ALWAYS IN ANOTHER ROOM. I NEED TO SPEAK WIHT HER." THIS NURSE SPOKE WITH PT'S DAUGHTER AND STATED TO HER "SHE(PT) RECEIVED HER LUNCH TRAY AT LUNCH AND ATE A LITTLE BIT AND IS EATING MORE NOW." PT'S DAUGHTER APOLOGIZED AND STATES "I'M GONNA HAVE TO STOP LISTENING TO HER(PT) BECAUSE SHE KEEPS LYING TO ME."
[2019-07-30 16:14] VITALS: BP 118/64
--- NOTE | 2019-07-30 17:25 | NUR ---
PT BLUE PAD A LITTLE DIRT. CHANGED BLUE PAD AND MCCLELLAND CATH CARE DONE. MCCLELLAND EMPTIED.
[2019-07-30 20:00] VITALS: BP 122/59
[2019-07-31] VITALS: BP 134/82
--- NOTE | 2019-07-31 00:59 | NUR ---
DAUGHTER IN ROOM. PT ORIENTED TO SELF AND SITUATION. LEFT CHEST INFUSAPORT SALINE LOCKED AT THIS TIME. CURRENTLY WEARING 3L NC. [T HAS MCCLELLAND CATHETER WITH ORANGE URINE--SEE EMAR FOR MEDICATIONS. MODERATE WEAKNESS IN BILATERAL UPPER AND LOWER EXTREMETIES. PATIENT ABLE TO ONLY PERFORM SLIGHT MOVEMENTS. HAS CHRONIC MCCLELLAND. DENIES NEEDS AT THIS TIME. CALL LIGHT IN REACH. DOOR OPEN AND PATIENT CLOSE TO NURSES STATION FOR CONTINUAL MONITORING. CPOC.
--- NOTE | 2019-07-31 01:01 | NUR ---
RESTING WITH EYES CLOSED. NO DISTRESS NOTED. CALL LIGHT WITHIN REACH. DOOR REMAINS OPEN. CPOC.
--- NOTE | 2019-07-31 02:01 | NUR ---
I have reviewed this patient and I concur with the Shift Assessment completed by the Licensed Practical Nurse today this shift.
[2019-07-31 04:00] VITALS: BP 112/55
[2019-07-31 05:19] LABS: BASOPHILS 0.2 % (0-2); EOSINOPHILS 0 % (0-7); HEMATOCRIT 42.2 % (36.0-48.0); HEMOGLOBIN 11.6 g/dL (12-16); LYMPHOCYTES 16.9 % (15-50); MCH 22.9 pg (26.0-34.0); MCHC 27.5 g/dL (31.0-37.0); MCV 83.2 fL (80.0-100.0); MONOCYTES 12.1 % (2-11); NEUTROPHILS 70.8 % (40-80); PLATELET COUNT 102 10x3/uL (130-400); RBC 5.07 10x6/uL (4.00-5.40); RDW 19.6 % (11.5-14.5); WBC 4.4 10x3/uL (4.8-10.8)
[2019-07-31 05:41] LABS: CALC OSMOLALITY 289 mosm/kg (275-300); CALCIUM 8.8 mg/dL (8.5-10.1); CHLORIDE - SERUM 99 mmol/L (98-107); GLUCOSE 99 mg/dL (74-106); SODIUM 146 mmol/L (136-145); UREA NITROGEN 11 mg/dL (7-18)
[2019-07-31 05:44] LABS: CARBON DIOXIDE 46.2 mmol/L (21.0-32.0); CREATININE - SERUM 0.5 mg/dL (0.6-1.3); eGFR NON AFRICAN AMERICAN > 90 mL/min (90-120)
[2019-07-31 09:17] VITALS: BP 112/50
--- NOTE | 2019-07-31 12:22 | NUR ---
NEW DRESSING OVER INFUSAPORT ON LEFT CHEST. REMOVED THE FLUID FROM MCCLELLAND AND INSERTED SLIGHTLY, THEN REFILLED BALLOON WITH 10CC STERILE WATER. PATIENT TOLERATED. SHE SAID SHE FEELS FULL , THE MCCLELLAND IS UNCOMFORTABLE, PATIENT STATES. PLACED A NEW STAT LOCK.
[2019-07-31 12:29] VITALS: BP 107/47
--- NOTE | 2019-07-31 13:16 | NUR ---
RT DID AGB ON PATIENT PH 7.36 PCO2 83.7 PO2 67 PATIENT REFUSED BIPAP AT THIS TIME
--- NOTE | 2019-07-31 16:23 | NUR ---
CALLED DR DALTON ABOUT THE CRITICAL HIGH CO2 OF 83.7 HE SAID PATIENT MUST WEAR HER BIPAP. PATIENT IS SCARED TO WEAR HER BIPAP, AND I CALLED RT, SHE SAID WE MUST CALL DR NUÑEZ. MARY GAVIRIA NOW.
[2019-07-31 16:52] VITALS: BP 115/51
--- NOTE | 2019-07-31 18:21 | NUR ---
PATIENT IS WEARING HER BIPAP WITH THE ENCOURAGEMENT OF HER DAUGHTER.
[2019-07-31 20:00] VITALS: BP 140/71
--- NOTE | 2019-07-31 22:10 | NUR ---
INITIAL ROUNDS COMPLETED AT 1915 HRS. NO DISTRESSNOTED. FAMILY AT BEDSIDE and BIPAP IN USE. ASSESSMENT COMPLETED AT 1940 HRS. VSS. PT ALERT AND ORIENTED TO PERSON,PLACE AND SITUATION. REORIENTED TO TIME. BIPAP AT 40%. L CHEST INFUSAPORT SL. LUNGS DIMINISHED IN BASES BILAT. MCCLELLAND DRAINING CONCENTRATED URINE. PT DOES NOT MOVE LOWER EXTREMITIES BUT HAS A POSITIVE BABINSKI REFLEX. PM MEDS GIVEN. PT REPOSITIONED ONTO L SIDE AT 2100 HRS. PT CURRENTLY RESTING WITH EYES CLOSED. RESP EVEN AND REGULAR. BIPAP IN USE AND FAMILY AT BEDSIDE. BED ALARM ON.
[2019-08-01] VITALS: BP 138/70
--- NOTE | 2019-08-01 00:40 | NUR ---
PT REPOSITIONED IN BED PER FAMILY. RT IN ROOM. NO CHANGE IN STATUS NOTED. SR UP X2, CALL LIGHT WITHIN REACH.
--- NOTE | 2019-08-01 02:09 | NUR ---
PT REPOSITIONED ONTO BACK. FAMILY AT BEDSIDE. BIPAP IN USE. SR UP X2, CALL LIGHT WITHIN REACH.
[2019-08-01 04:00] VITALS: BP 125/70
--- NOTE | 2019-08-01 04:26 | NUR ---
PT RESTING WITH EYES CLOSED. RESP EVEN AND REGULAR. BIPAP IN USE. FAMILY AT BEDSIDE. SR UP X2,CALL LIGHT WITHIN REACH.
--- NOTE | 2019-08-01 04:41 | NUR ---
REPOSITIONED ONTO IDE. FAMILY AT BEDSIDE.
--- NOTE | 2019-08-01 05:36 | NUR ---
VSS THROUGHOUT NIGHT. PT CALMER THIS AM WEARING BIPAP. TURNED SEVERAL TIMES DURING SHIFT. FAMILY AT BEDSIDE.
--- NOTE | 2019-08-01 06:31 | NUR ---
ATTMPTED TO DRAW FORM ACCESSED PORT WITHOUT SUCCESS. LAB NOTIFIED.
[2019-08-01 06:58] LABS: BASOPHILS 0.4 % (0-2); EOSINOPHILS 0 % (0-7); HEMATOCRIT 42.8 % (36.0-48.0); HEMOGLOBIN 12.1 g/dL (12-16); IMMATURE GRANULOCYTES 0.2 % (0-5); LYMPHOCYTES 21.3 % (15-50); MCH 23.5 pg (26.0-34.0); MCHC 28.3 g/dL (31.0-37.0); MCV 83.1 fL (80.0-100.0); MONOCYTES 11.9 % (2-11); NEUTROPHILS 66.2 % (40-80); PLATELET COUNT 101 10x3/uL (130-400); RBC 5.15 10x6/uL (4.00-5.40); RDW 20.6 % (11.5-14.5); WBC 4.5 10x3/uL (4.8-10.8)
--- NOTE | 2019-08-01 07:08 | NUR ---
PT AWAKE ADN ALERT, BIPAP ON IN PLACE. FAMILY PRESENT AT BEDSIDE, NO COMPLAITNS OR CONCERNS, ALL QUESTIONS ANSWERED. CL IN REACH, SRX2.
[2019-08-01 07:24] LABS: CALC OSMOLALITY 282 mosm/kg (275-300); CALCIUM 9.3 mg/dL (8.5-10.1); CHLORIDE - SERUM 98 mmol/L (98-107); GLUCOSE 107 mg/dL (74-106); SODIUM 142 mmol/L (136-145); UREA NITROGEN 13 mg/dL (7-18)
[2019-08-01 07:25] LABS: CREATININE - SERUM 0.7 mg/dL (0.6-1.3); POTASSIUM - SERUM 3.1 mmol/L (3.5-5.1); eGFR NON AFRICAN AMERICAN 87 mL/min (90-120)
[2019-08-01 07:29] LABS: CARBON DIOXIDE 41.7 mmol/L (21.0-32.0)
[2019-08-01 08:36] VITALS: BP 115/60
--- NOTE | 2019-08-01 12:11 | NUR ---
I have reviewed this patient and I concur with the Shift Assessment completed by the Licensed Practical Nurse today this shift.
[2019-08-01 12:17] VITALS: BP 120/64
[2019-08-01 16:45] VITALS: BP 120/60
--- NOTE | 2019-08-01 18:11 | NUR ---
PT TOOK BIPAP OFF TO EAT, DR. NUÑEZ AND DR. DALTON BOTH SAID THAT WAS FINE. PT CURRENLTY BACK ON BIPAP LYING L SIDE, CLEAN AND DRY. CL IN REACH, SRX2. DAUGHTER AT BEDSIDE.
--- NOTE | 2019-08-01 18:35 | NUR ---
1800 OUT OF STAS
--- NOTE | 2019-08-01 19:10 | NUR ---
PATIENT LAYING IN BED. EYES CLOSED, CHEST RISING AND FALLING. NO DISTRESS NOTED.
[2019-08-01 20:00] VITALS: BP 117/56
[2019-08-02] VITALS: BP 133/60
[2019-08-02 04:30] VITALS: BP 106/60
[2019-08-02 04:52] LABS: CALC OSMOLALITY 284 mosm/kg (275-300); CALCIUM 8.9 mg/dL (8.5-10.1); CARBON DIOXIDE 39.3 mmol/L (21.0-32.0); CHLORIDE - SERUM 103 mmol/L (98-107); CREATININE - SERUM 0.6 mg/dL (0.6-1.3); GLUCOSE 88 mg/dL (74-106); POTASSIUM - SERUM 3.1 mmol/L (3.5-5.1); SODIUM 143 mmol/L (136-145); UREA NITROGEN 14 mg/dL (7-18); eGFR NON AFRICAN AMERICAN > 90 mL/min (90-120)
[2019-08-02 05:09] LABS: BASOPHILS 0.3 % (0-2); EOSINOPHILS 0 % (0-7); HEMATOCRIT 42.2 % (36.0-48.0); HEMOGLOBIN 11.7 g/dL (12-16); IMMATURE GRANULOCYTES 0.3 % (0-5); LYMPHOCYTES 26.1 % (15-50); MCH 22.6 pg (26.0-34.0); MCHC 27.7 g/dL (31.0-37.0); MCV 81.6 fL (80.0-100.0); MONOCYTES 13.2 % (2-11); NEUTROPHILS 60.1 % (40-80); PLATELET COUNT 103 10x3/uL (130-400); RBC 5.17 10x6/uL (4.00-5.40); RDW 20.2 % (11.5-14.5); WBC 3.6 10x3/uL (4.8-10.8)
--- NOTE | 2019-08-02 05:55 | NUR ---
I have reviewed this patient and I concur with the Shift Assessment completed by the Licensed Practical Nurse today this shift.
--- NOTE | 2019-08-02 07:30 | NUR ---
RECIEVED REPORT. RESTING IN BED WITH EYES CLOSED. DAUGHTER AT BEDSIDE. MCCLELLAND DRAINING BY GRAVITY. NO SIGNS OF DISTRESS. CONTINUE PLAN OF CARE AND SAFETY PRECAUTIONS.
[2019-08-02 08:08] VITALS: BP 110/59
[2019-08-02 11:54] VITALS: BP 103/45
[2019-08-02 16:13] VITALS: BP 107/53
--- NOTE | 2019-08-02 17:33 | NUR ---
ALERT AND ORIENTED X3. SITTING UP IN BED EATING. MCCLELLAND DRAINING BY GRAVITY. BEDBATH AND LINEN CHANGE COMPLETE. DENIES SOB OR PAIN. REPOSITION IN BED. DENIES ANY NEEDS. CONTINUE PLAN OF CARE AND SAFETY PRECAUTIONS.
[2019-08-02 20:00] VITALS: BP 107/62
[2019-08-03 00:30] VITALS: BP 158/81
--- NOTE | 2019-08-03 03:57 | NUR ---
I have reviewed this patient and I concur with the Shift Assessment completed by the Licensed Practical Nurse today this shift.
[2019-08-03 04:30] VITALS: BP 147/61
[2019-08-03 06:04] LABS: BASOPHILS 0.5 % (0-2); EOSINOPHILS 0 % (0-7); HEMATOCRIT 43.4 % (36.0-48.0); HEMOGLOBIN 12.1 g/dL (12-16); IMMATURE GRANULOCYTES 0.3 % (0-5); LYMPHOCYTES 22.7 % (15-50); MCH 22.9 pg (26.0-34.0); MCHC 27.9 g/dL (31.0-37.0); MONOCYTES 9.9 % (2-11); NEUTROPHILS 66.6 % (40-80); PLATELET COUNT 109 10x3/uL (130-400); RBC 5.29 10x6/uL (4.00-5.40); RDW 20.3 % (11.5-14.5); WBC 3.8 10x3/uL (4.8-10.8)
[2019-08-03 06:24] LABS: CALC OSMOLALITY 288 mosm/kg (275-300); CALCIUM 10.1 mg/dL (8.5-10.1); CHLORIDE - SERUM 103 mmol/L (98-107); CREATININE - SERUM 0.6 mg/dL (0.6-1.3); GLUCOSE 104 mg/dL (74-106); POTASSIUM - SERUM 3.2 mmol/L (3.5-5.1); SODIUM 144 mmol/L (136-145); UREA NITROGEN 17 mg/dL (7-18); eGFR NON AFRICAN AMERICAN > 90 mL/min (90-120)
--- NOTE | 2019-08-03 07:19 | NUR ---
REPORT RECEIVED. WILL CONTINUE WITH POC. PT CURRENTLY LYING SEMI FOWLERS. CALL LIGHT W/I REACH. PT IS RESTING AT THIS TIME. RR EVEN AND UNLABORED ON 3L 02. L.CHEST PORT IN PLACE. MCCLELLAND IN PLACE AND DRAINING URINE. NO S/S OF DISTRESS NOTED. PT DENIES ANY NEEDS. WILL CTM.
[2019-08-03 07:35] VITALS: BP 102/58
[2019-08-03 09:09] LABS: HEPATITIS C ANTIBODY >11.0 S/CO RAT (0.0-0.9)
[2019-08-03 11:07] VITALS: BP 105/57
[2019-08-03 11:13] LABS: ANA REFLEX - DIRECT Negative (Negative)
--- NOTE | 2019-08-03 13:07 | NUR ---
Nutrition Follow-up: Daughter at BS helping pt eat lunch. Pt reports eating <50% of breakfast this AM. Daughter reports that pt has not been eating well overall. Drinking ~3 Ensure/wk. Diet: Cardiac, Mechanical Soft Ground Meats with Gravy and Thin Liquids, Ensure with meals Wt: 300.8# (gain of 17.8# since 07/26) Last BM: 07/31 Labs noted: K+ 3.2 Meds noted: Lactulose, Lasix, Miralax, Floranex, Micro K, KCl -Continue current diet as tolerated. -MD may consider appetite stimulant. -RD following.
[2019-08-03 15:15] VITALS: BP 124/57
--- NOTE | 2019-08-03 17:54 | NUR ---
PT CURRENTLY EATING DINNER. PT REPOSITIONED. DAUGHTER AT BEDSIDE. PT DENIES ANY NEEDS. NO S/S OF DISTRESS NOTED. WILL CTM.
--- NOTE | 2019-08-03 18:09 | NUR ---
I have reviewed this patient and I concur with the Shift Assessment completed by the Licensed Practical Nurse today this shift.
--- NOTE | 2019-08-03 18:23 | NUR ---
UTILITY BILL COMPLAINTS INVESTIGATOR OFFERED TO PUT AIR MATTRESS ON BED, PT DAUGHTER SAID SHE WANTED TO WAIT DUE TO SHE JUST GOT THE PT COMFORTABLE AND PT WAS OUT OF BREATH.
--- NOTE | 2019-08-03 19:36 | NUR ---
BEDSIDE REPORT RECEIVED FROM DAY SHIFT, PT CARE ASSUMED. WROTE NAME ON BOARD, PT LYING IN BED WATCHING TV, AWAKE AND ALERT. DENIES ANY NEEDS AT THIS TIME. BED IN LOWEST POSITION, SR X3, CALL LIGHT WITHIN REACH. WILL CONTINUE TO MONITOR.
[2019-08-03 20:00] VITALS: BP 116/46
--- NOTE | 2019-08-03 21:15 | NUR ---
PT SITTING UP IN BED WATCHING TV. NIGHT TIME MEDS ADMINSITERED, PER ORDER. PT TURNED TO BACK. DENIES ANY NEEDS AT THIS TIME. BED IN LOWEST POSITION, SR X2, CALL LIGHT WITHIN REACH. WILL CONTINUE TO MONITOR.
[2019-08-04] VITALS: BP 112/51
[2019-08-04 04:00] VITALS: BP 103/54
--- NOTE | 2019-08-04 04:07 | NUR ---
PT LYING IN BED WITH EYES CLOSED, RR EVEN AND NONLABORED, NO S/S OF DISTRESS, AROUSES EASILY TO VOICE. DENIES ANY NEEDS AT THIS TIME. BED IN LOWEST POSITION, SR X2, CALL LIGHT WITHIN REACH. WILL CONTINUE TO MONITOR.
[2019-08-04 05:44] LABS: CALC OSMOLALITY 291 mosm/kg (275-300); CALCIUM 9.3 mg/dL (8.5-10.1); CARBON DIOXIDE 36.7 mmol/L (21.0-32.0); CHLORIDE - SERUM 105 mmol/L (98-107); CREATININE - SERUM 0.7 mg/dL (0.6-1.3); GLUCOSE 96 mg/dL (74-106); POTASSIUM - SERUM 3.2 mmol/L (3.5-5.1); SODIUM 146 mmol/L (136-145); UREA NITROGEN 16 mg/dL (7-18); eGFR NON AFRICAN AMERICAN 87 mL/min (90-120)
[2019-08-04 05:52] LABS: BASOPHILS 0.3 % (0-2); EOSINOPHILS 0.3 % (0-7); HEMATOCRIT 43.6 % (36.0-48.0); HEMOGLOBIN 12.2 g/dL (12-16); IMMATURE GRANULOCYTES 0.3 % (0-5); LYMPHOCYTES 25.1 % (15-50); MCH 22.8 pg (26.0-34.0); MCV 81.5 fL (80.0-100.0); MONOCYTES 10.6 % (2-11); NEUTROPHILS 63.4 % (40-80); PLATELET COUNT 117 10x3/uL (130-400); RBC 5.35 10x6/uL (4.00-5.40); RDW 20.7 % (11.5-14.5); WBC 3.9 10x3/uL (4.8-10.8)
[2019-08-04 08:00] VITALS: BP 116/48
--- NOTE | 2019-08-04 10:00 | NUR ---
STUDENT NURSE CALLED RN INTO THE ROOM TO REPORT FACIAL DROOPING ON THE LEFT SIDE. STRAIGHTENED PATIENT IN THE BED AND FACIAL DROOP WENT AWAY. STEEL WHEEL ENGRAVER STRENGTH EQUAL BILATERALLY, SMILE SYMETRICAL. PATIENT REPORTS NO SIGNS OF DISCOMFORT AT THIS TIME. PT WAS ABLE TO ANSWER ALL ORIENTATION QUESTIONS APPROPRIATELY.
--- NOTE | 2019-08-04 11:50 | NUR ---
RAPID RESPONSE CALLED FOR STROKE PROTOCAL. PATIENT HAD LEFT SIDED DROOP ALONG WITH SOME DROOLING. SLIGHT WEAKNESS NOTED IN THE LEFT HAND. HEAD CT ORERED ALONG WITH SOME OTHER ORDERS.
[2019-08-04 13:25] LABS: ALBUMIN 3.1 g/dL (3.4-5.0); ALKALINE PHOSPHATASE 82 U/L (46-116); ALT (SGPT) 38 U/L (10-68); BILIRUBIN - TOTAL 0.89 mg/dL (0.2-1.3); CALC OSMOLALITY 290 mosm/kg (275-300); CALCIUM 9.2 mg/dL (8.5-10.1); CARBON DIOXIDE 39.7 mmol/L (21.0-32.0); CHLORIDE - SERUM 103 mmol/L (98-107); CREATININE - SERUM 0.7 mg/dL (0.6-1.3); GLUCOSE 125 mg/dL (74-106); POTASSIUM - SERUM 3.4 mmol/L (3.5-5.1); PROTEIN - SERUM 7.1 g/dL (6.4-8.2); SODIUM 145 mmol/L (136-145); UREA NITROGEN 15 mg/dL (7-18); eGFR NON AFRICAN AMERICAN 87 mL/min (90-120)
[2019-08-04 13:29] LABS: MAGNESIUM - SERUM 1.7 mg/dL (1.8-2.4); THYROID STIMULATING HORMONE 2.43 uIU/mL (0.36-3.74)
[2019-08-04 13:59] VITALS: BP 116/59
[2019-08-04 17:19] VITALS: BP 115/84
--- NOTE | 2019-08-04 19:15 | NUR ---
REPORT RECEIVED, WILL CONTINUE POC. PATIENT IS LETHARGIC, AROUSES TO VOICE. NO S/S OF DISTRESS OBSERVED, RR EVEN AND UNLABORED ON 4L VIA NC. PATIENT HAS LT CHEST PORT, PATENT, DRSG C/D/I. PATIENT HAS MCCLELLAND DRAINING BY GRAVITY TO RT SIDE OF BED, DARK URINE NOTED. PATIENT DENIES FURTHER NEEDS AT THIS TIME. CL IN REACH, BED LOCKED AND LOWERED. WILL CTM.
[2019-08-04 20:00] VITALS: BP 139/61
--- NOTE | 2019-08-04 21:12 | NUR ---
HS MEDS GIVEN. INSTRUCTED BY DAY SHIFT NURSE EMERALD CONTRERAS TO HOLD SLEEP MEDS DUE TO PATIENT STATUS. MELATONIN HELD. PATIENT TOLERATED MEDS WELL. WILL CTM.
--- NOTE | 2019-08-04 22:00 | NUR ---
PATIENTS DAUGHTER, SHEILA, CALLED TO CHECK ON HER. SHE EXPRESSED CONCERNS ABOUT PATIENT NOT HAVING A BM FOR 5 DAYS, SAID THAT THIS IS NOT NORMAL FOR HER. ANSWERED DAUGHTERS QUESTIONS ABOUT MEDS AND CARE. SHE ASKS THAT WE CALL HER ABOUT ANY CHANGES (SHEILA [phone]).
--- NOTE | 2019-08-04 23:46 | NUR ---
ATTEMPTED TO PLACE PT ON BIPAP. PT STATES FEELING WELL AND DOES NOT WANT BIPAP AT THIS TIME. AGREES TO CALL IF SOB.
[2019-08-05] VITALS: BP 134/61
[2019-08-05 04:00] VITALS: BP 134/55
--- NOTE | 2019-08-05 04:33 | NUR ---
EMPTIED 1200ML DARK, CONCENTRATED URINE FROM MCCLELLAND
--- NOTE | 2019-08-05 04:58 | NUR ---
DAUGHTER, SHEILA, CALLED TO CHECK ON HOW PATIENTS NIGHT WENT. INFORMED HER THAT NOTHING HAS CHANGED. STILL NO BM. ADMINISTERED PRN DUCOLAX. WILL CTM. DAUGHTER EXPRESSED CONCERNS OVER PATIENT CARE AND THAT SHE DOESN'T FEEL LIKE HER CONCERNS ARE BEING TAKEN SERIOUSLY. I WROTE DOWN HER CONCERNS AND PASSED THEM ALONG TO EMERALD SANCHEZ. REASSURED HER THAT HER CONCERNS ARE BEING TAKEN SERIOUSLY AND THAT EVERYTHING WILL BE DONE TO ENSURE HER MOTHER HAS THE BEST CARE.
[2019-08-05 05:32] LABS: CALC OSMOLALITY 289 mosm/kg (275-300); CALCIUM 9.1 mg/dL (8.5-10.1); CARBON DIOXIDE 38.2 mmol/L (21.0-32.0); CHLORIDE - SERUM 105 mmol/L (98-107); CREATININE - SERUM 0.6 mg/dL (0.6-1.3); GLUCOSE 97 mg/dL (74-106); MAGNESIUM - SERUM 1.7 mg/dL (1.8-2.4); POTASSIUM - SERUM 3.2 mmol/L (3.5-5.1); SODIUM 145 mmol/L (136-145); UREA NITROGEN 14 mg/dL (7-18); eGFR NON AFRICAN AMERICAN > 90 mL/min (90-120)
[2019-08-05 05:35] LABS: BASOPHILS 0.2 % (0-2); EOSINOPHILS 0 % (0-7); HEMATOCRIT 43.2 % (36.0-48.0); HEMOGLOBIN 12.1 g/dL (12-16); IMMATURE GRANULOCYTES 0.4 % (0-5); LYMPHOCYTES 18.7 % (15-50); MCH 22.9 pg (26.0-34.0); MCV 81.8 fL (80.0-100.0); NEUTROPHILS 68.7 % (40-80); PLATELET COUNT 115 10x3/uL (130-400); RBC 5.28 10x6/uL (4.00-5.40); RDW 21.1 % (11.5-14.5); WBC 4.6 10x3/uL (4.8-10.8)
--- NOTE | 2019-08-05 07:58 | NUR ---
POTASSIUM HAS BEEN TREATED. ORDERED RECHECK THIS MORNING.
--- NOTE | 2019-08-05 08:02 | NUR ---
PATIENT IS ALERT AND AWAKE.
[2019-08-05 09:45] VITALS: BP 115/50
--- NOTE | 2019-08-05 10:41 | NUR ---
AT PATIENT BEDSIDE, DAUGHTER TOLD NURSE AND ELECTRICIAN SUPERVISOR THAT SHE GAVE THE PATIENT, HER MOTHER A BATH. THE PATIENT HAS HAD A BM, AND PASSED A LOT OF GAS. ALSO, WE ASKED IF WE COULD TURN THE PATIENT AND THE DAUGHTER AND PATIENT REFUSED, AND SAID THAT SHE HAD JUST BEEN TURNED. SCD'S PLACED ON THE PATIENT. THERE IS A RASH ON THE LEFT ARM, AND RIGHT FOOT AND ABDOMEN.
[2019-08-05 13:05] LABS: APPEARANCE CLEAR (CLEAR); COLOR DK YELLOW (YELLOW)
[2019-08-05 13:06] LABS: BILIRUBIN NEGATIVE (NEGATIVE); GLUCOSE NEGATIVE (NEGATIVE); KETONE NEGATIVE (NEGATIVE); NITRITE NEGATIVE (NEGATIVE); PROTEIN NEGATIVE (NEGATIVE); UROBILINOGEN NORMAL (NORMAL)
[2019-08-05 13:22] VITALS: BP 139/70
--- NOTE | 2019-08-05 13:32 | NUR ---
Nutrition Follow-up: Spoke with pt and daughter. Reports PO intake somewhat improved; eating >=50% of meals. Daughter reports that pt is not drinking as much Ensure. She requests that we d/c them with meals and they will request them PRN. Small BM this AM. Diet: Cardiac, Mech Soft Ground Meats with Gravy, Thin Liquids, Ensure TID Wt: 301# Labs noted: K+ 3.0, Mg 1.7, Ammonia 46 Meds noted: Lactulose (increased back to BID), Dulcolax, Miralax, Floranex, Lasix, KDur, Micro K, MagOx -Continue current diet as tolerated; will d/c Ensure per request. -[place] food preferences within diet restrictions. -RD following.
[2019-08-05 17:36] VITALS: BP 135/75
--- NOTE | 2019-08-05 19:20 | NUR ---
PT CARE ASSUMED. RR EVEN AND UNLABORED. NO S/S OF DISTRESS NOTED AT THIS TIME. NO VOICED C/O OR CONCERNS AT THIS TIME. CALL LIGHT IN REACH. WILL CPOC.
[2019-08-05 20:00] VITALS: BP 144/66
--- NOTE | 2019-08-05 23:05 | NUR ---
PROVIDED LINEN CHANGE FOR JAXONG BM.
--- NOTE | 2019-08-05 23:51 | NUR ---
PT AWAKE REFUSED TO COMPLY WITH APPLICATION OF BILEVEL RR 24 EQUALATERAL EXCURSION FIO2 3,5 NC SPO2 94% . ZERO CYANOSIS NO IMMEDIATE S/S RESP DISTRESS
[2019-08-06] VITALS: BP 124/83
[2019-08-06 04:00] VITALS: BP 161/65
[2019-08-06 06:04] LABS: BASOPHILS 0.4 % (0-2); EOSINOPHILS 0 % (0-7); HEMATOCRIT 44.3 % (36.0-48.0); HEMOGLOBIN 12.7 g/dL (12-16); LYMPHOCYTES 15.6 % (15-50); MCH 23.4 pg (26.0-34.0); MCHC 28.7 g/dL (31.0-37.0); MCV 81.6 fL (80.0-100.0); MONOCYTES 9.8 % (2-11); NEUTROPHILS 74.2 % (40-80); PLATELET COUNT 116 10x3/uL (130-400); RBC 5.43 10x6/uL (4.00-5.40); RDW 21.7 % (11.5-14.5); WBC 5.4 10x3/uL (4.8-10.8)
[2019-08-06 06:25] LABS: CALC OSMOLALITY 291 mosm/kg (275-300); CALCIUM 9.2 mg/dL (8.5-10.1); CARBON DIOXIDE 34.8 mmol/L (21.0-32.0); CHLORIDE - SERUM 107 mmol/L (98-107); CREATININE - SERUM 0.7 mg/dL (0.6-1.3); GLUCOSE 111 mg/dL (74-106); SODIUM 145 mmol/L (136-145); UREA NITROGEN 17 mg/dL (7-18); eGFR NON AFRICAN AMERICAN 87 mL/min (90-120)
[2019-08-06 06:27] LABS: POTASSIUM - SERUM 3.5 mmol/L (3.5-5.1)
[2019-08-06 08:32] VITALS: BP 156/74
--- NOTE | 2019-08-06 09:55 | NUR ---
SPOKE WITH GEE BAH ABOUT AMMONIA LEVEL RECHECK. SHE STATES AND HANNAH WRIGHT ARE MANAGING THAT AND TO SPEEAK WITH THEM. GEE BAH ALSO ASKED ABOUT PT'S RASH IO STATED TO HER ITS STILL REALLY RED SHE ASKED IF PT WAS GETTING BENADRYL STILL AND I STATED DR. NAIDU PUT THAT AND ELAVIL ON HOLD BECAUSE HE DOESN'T WANT HER TO BE DROWSY. SHE STATES PT DOES NOT NEED TO BE ITCHING AND IN PAIN FROM RASH EITHER I AGREED. SHE STATES SHE WILL LOOK INTO IT.
--- NOTE | 2019-08-06 12:12 | NUR ---
UNABLE TO DO LINE DRAW FOR AMMONIA LEVEL. SPOKE WITH LAB AND THEY ARE SUPPOSSED TO COME DRAW PT'S LAB.
--- NOTE | 2019-08-06 13:38 | NUR ---
PT'S DAUGHTER CALLED AND I SPOKE WITH HER AND GAVE HER DETAILED "UPDATE" WITH DOCTOR'S NOTES, LABS, MEDICATIONS, AND PT'S BEHAVIOR AND CONFUSION TODAY. PT ASKING EARLIER THIS AM IF P.T. WILL WORK WITH PT TODAY I STATED TO HER I WOULD FIND OUT. SHE STATES PT USES A MAGDALENO LIFT AT HOME. I SPOKE WITH P.T. AND THEY STATED THEY ARE NOT ALLOWED TO USE [employer] LIFTS PER THEIR COMPANY. I STATED THIS TO PT'S DAUGHTER AND SHE VERBALIZED UNDERSTANDING AND SHE STATED SHE WISH SHE WOULD HAVE BEEN TOLD ABOUT THIS SOONER CAUSE SHE UNDERSTANDS. I APOLOGIZED. SHE ASKED IF I COULD PLACE SCD'S BACK ON PT'S LEGS AND I STATED I WOULD.
--- NOTE | 2019-08-06 13:56 | NUR ---
SCD'S PLACED ON PT.
--- NOTE | 2019-08-06 14:07 | NUR ---
SCD'S PLACED BILATERALLY ON PT'S LEGS AND PT CHECKED AND IS STILL CLEAN.
[2019-08-06 14:52] VITALS: BP 137/89
--- NOTE | 2019-08-06 17:20 | MORECARE ---
CASE MANAGEMENT DISCHARGE SUMMARY PATIENT: TESS OTERO UNIT: [id number] ADM DATE: 07/24/19 AGE: 74 : 46 SEX: F ROOM/BED: D.2811 AUTHOR: ENRIKE AKHTAR PHYSICIAN: REFERRING PHYSICIAN: ANANT ODONNELL MD DATE OF SERVICE: 08/06/19 Discharge Plan Patient Name: TESS OTERO Facility: [facility]:[place] : 1945 Planned Disposition: Home with Home Health Anticipated Discharge Date: Discharge Date: Expected LOS: Initial Reviewer: [id number] Initial Review Date: 07/28/2019 Generated: 08/06/19 6:20 pm DCP- Discharge Planning Updated by [id number]: Tamara Burk on 07/28/19 1:[address] Patient Name: TESS OTERO Admission Status: ER Accout number: [id number] Admission Date: 07-24-2019 : 1945 Admission Diagnosis:DISORIENTATION, UNSPECIFIED Attending: ANANT SCHMID Current LOS: 4 Anticipated DC Date: Planned Disposition: Primary Insurance: [facility] MEDICARE SOLUTIONS Discharge Planning Comments: CM WENT TO MEET WITH PATIENT ABOUT DC PLANNING. THERE IS A MEDICAL CLAIMS EXAMINER AT BEDSIDE AND STATES TO CALL PATIENT'S DAUGHTER TAMARA. SHE DOES HAVE HH WITH [facility]. CM WILL FOLLOW UP WITH DAUGHTER ABOUT DC PLANNING. Rn Midwife: Tamara Burk DCPIA - Discharge Planning Initial Assessment Updated by [email or web address]: Tamara Burk on 07/28/19 2:38 pm * Community resources currently utilized Home Health * Please name any agencies selected above. [facility] Coverage Notice Reviewer: [id number] Asha Chavez Notice Issued Date-Time: 08/06/2019 14:40 Notice Type: Patient Choice Letter Notice Delivered To: Family Member Relationship to Patient: Daughter Computing Machine Operator Name: TAMARA OTERO Delivery Method: PHONE - Phone [place] Days: Prior Verbal Notification: Recipient Understood Notice: Yes Recipient Signature: Med Rec Note Co-signed by Attending: Coverage Notice Comment: [facility] Last DP export: 07/28/19 1:40 p Patient Name: TESS OTERO Page 82978 at 1720 All edits/amendments must be made on the electronic document DICTATION DATE: 08/06/191719 MOLD DESIGNER: TOSHIA 08/06/191719 RPT#: [id number] DC DATE: STATUS: ADM IN [facility] [address] [place] [address] END OF REPORT
--- NOTE | 2019-08-06 17:29 | MORECARE ---
CASE MANAGEMENT DISCHARGE SUMMARY PATIENT: TESS OTERO UNIT: [id number] ADM DATE: 07/24/19 AGE: 74 : 46 SEX: F ROOM/BED: D.8880 AUTHOR: GIOVANA,DOC PHYSICIAN: REFERRING PHYSICIAN: ANANT ODONNELL MD DATE OF SERVICE: 08/06/19 Discharge Plan Patient Name: TESS OTERO Facility: [facility]:[place] : 1945 Planned Disposition: Home with Home Health Anticipated Discharge Date: Discharge Date: Expected LOS: Initial Reviewer: [id number] Initial Review Date: 07/28/2019 Generated: 08/06/19 6:29 pm Comments DCP- Discharge Planning Updated by [id number]: Saravanan Chavez on 08/06/19 4:[address] Patient Name: TESS OTERO Encounter No: [id number] : 1945 Primary Insurance: [facility] MEDIC[facility] SOLUTIONS Anticipated DC Date: Planned Disposition: Home with Home Health External Planned Provider: [facility] DCP follow-up note: CM SPOKE TO PT IN ROOM WHO REPORTS PLAN TO RETURN HOME WITH HER DAUGHTER WHO CARES FOR HER AT HOME, PT WILL REQUIRE AMBULANCE TRANPSPORT TO GET HOME. CM CALLED AND SPOKE TO PT'S DAUGHTER, TAMARA GOMEZ, WHO REPORTS TO BE PT'S 24 HOUR CAREGIVER AT HOME. THEY ALSO HAVE [facility] THAT THEY WANT RESUMED AT DISCHARGE. CHOICE LETTER COMPLETED. TAMARA DENIES FURHTER DISCHARGE NEEDS AND REPORTS THAT DR. NAIDU IS GOING TO WORK ON GETTING PT A BIPAP. CM REVIEWED CHART, PT'S CURRENT BLOOD GASSES DO NOT QUALIFY FOR TRILOGY MACHINE. CM EXPLAINED TO TAMARA THAT FURHTER TESTING RESULTS MAY BE NEEDED AND THAT THE DOCTOR WILL ORDER NECESSARY EQUIPMENT FOR CM TO ARRANGE AND THAT INSURANCE WOULD COVER IF PT QUALIFIES BY TEST RESULTS. TAMARA REPORTS UNDERSTANDING. PT TO TRANSPORT HOME VIA AMBULANCE. THEY USE [employer] LIFT FOR PT AT HOME AND HAVE WHEELCHAIR, POWER WHEELCHAIR, BEDSIDE COMMODE AND HOSPITAL BED. BONITA SPOKE TO EDD CLEMONS [facility] WHO REPORTS THEY WILL RESUME PT'S HOME CARE AT DISCHARGE. PT WILL DISCHARGE HOME WITH DAUGHTER WHO IS PT'S CAREGIVER. TO RESUME HOME HEALTH, NOTIFY [facility] AT [phone], FAX DISCHARGE INFORMATION TO [facility] AT [phone]. PT TO TRANPSORT HOME VIA AMBULANCE. Saravanan Chavez, CASE MANAGEMENT DCP- Discharge Planning Updated by [id number]: Tamarapaulina Burk on 07/28/19 1:[address] Patient Name: TESS OTERO Admission Status: ER Accout number: [id number] Admission Date: 07-24-2019 : 1945 Admission Diagnosis:DISORIENTATION, UNSPECIFIED Attending: ANANT SCHMID Current LOS: 4 Anticipated DC Date: Planned Disposition: Primary Insurance: [facility] MEDIC[facility] SOLUTIONS Discharge Planning Comments: CM WENT TO MEET WITH PATIENT ABOUT DC PLANNING. THERE IS A GAS PLUMBER AT BEDSIDE AND STATES TO CALL PATIENT'S DAUGHTER TAMARA. SHE DOES HAVE HH WITH [facility]. CM WILL FOLLOW UP WITH DAUGHTER ABOUT DC PLANNING. Carriage Setter: Tamarapaulina Burk DCPIA - Discharge Planning Initial Assessment Updated by [id number]: Saravanan Chavez on 08/06/19 5:21 pm * Is the patient Alert and Oriented? Yes * How many steps to enter\exit or inside your home? NONE * PCP DR. MARTINEZ * Pharmacy [facility] * Preadmission Environment Home with Family * ADLs Partial Dependent * Partial ADLs (Assistance needed) Ambulation Bathing Dressing Medication Management Toileting Transfers * Equipment Bedside [facility] Bed Nelly Lift Power Chair or Electric Scooter Wheelchair * Other Equipment NO MEDICAL EQUIPMENT PROVIDER PREFERENCE * List name and contact numbers for known caregivers / representatives who currently or will assist patient after discharge: TAMARA OTERO, DTR, * Verbal permission to speak to the caregivers and representatives has been obtained from the patient. Yes * Community resources currently utilized Home Health * Please name any agencies selected above. [facility] * Additional services required to return to the preadmission environment? No * Can the patient safely return to the preadmission environment? Yes * Has this patient been hospitalized within the prior 30 days at any hospital? No External Providers External Provider: [facility] Next Contact Date: 08/06/2019 Service Request Date: Service Type: Resolution: Reviewer: Comments: Coverage Notice Reviewer: [id number] - Saravanan Chavez Notice Issued Date-Time: 08/06/2019 14:40 Notice Type: Patient Choice Letter Notice Delivered To: Family Member Relationship to Patient: Daughter Tennis Court Attendant Name: TAMARA OTERO Delivery Method: PHONE - Phone [place] Days: Prior Verbal Notification: Recipient Understood Notice: Yes Recipient Signature: Med Rec Note Co-signed by Attending: Coverage Notice Comment: [facility] Last DP export: 08/06/19 4:21 p Patient Name: TESS OTERO Page 48383 at 1729 All edits/amendments must be made on the electronic document DICTATION DATE: 08/06/191728 SHOE REPAIRER APPRENTICE: TOSHIA 08/06/191728 RPT#: [id number] CO DATE: STATUS: ADM IN [facility] [address] [place] [address] END OF REPORT
--- NOTE | 2019-08-06 17:43 | NUR ---
I have reviewed this patient and I concur with the Shift Assessment completed by the Licensed Practical Nurse today this shift.
--- NOTE | 2019-08-06 19:20 | NUR ---
REPORT RECIEVED AND ROUNDING COMPLETE. PATIENT LAYING IN BED IN SUPINE POSITION. EYES CLOSED AND BREATHING SHALLOW AND EVEN. PATIENT IS RECIEVEING O2 AT 4.5L VIA [employer] CANN[employer]. PATIENT DAUGHTER AT BEDSIDE. PATIENT IS SHOWING NO S/SX OF DISTRESS AT THIS TIME. CALL LIGHT WITHIN REACH AND BED IN LOWEST LOCKED POSITION.
[2019-08-06 20:00] VITALS: BP 157/58
[2019-08-07] VITALS: BP 153/82
[2019-08-07 04:00] VITALS: BP 144/75
[2019-08-07 06:29] LABS: BASOPHILS 0.7 % (0-2); EOSINOPHILS 0 % (0-7); HEMATOCRIT 44.6 % (36.0-48.0); HEMOGLOBIN 12.7 g/dL (12-16); IMMATURE GRANULOCYTES 0.2 % (0-5); LYMPHOCYTES 17.1 % (15-50); MCH 23.3 pg (26.0-34.0); MCHC 28.5 g/dL (31.0-37.0); MONOCYTES 12.4 % (2-11); NEUTROPHILS 69.6 % (40-80); PLATELET COUNT 128 10x3/uL (130-400); RBC 5.44 10x6/uL (4.00-5.40); RDW 22.1 % (11.5-14.5); WBC 5.6 10x3/uL (4.8-10.8)
[2019-08-07 06:42] LABS: CALC OSMOLALITY 292 mosm/kg (275-300); CALCIUM 9.2 mg/dL (8.5-10.1); CARBON DIOXIDE 33.4 mmol/L (21.0-32.0); CHLORIDE - SERUM 107 mmol/L (98-107); CREATININE - SERUM 0.7 mg/dL (0.6-1.3); GLUCOSE 109 mg/dL (74-106); MAGNESIUM - SERUM 1.9 mg/dL (1.8-2.4); POTASSIUM - SERUM 3.4 mmol/L (3.5-5.1); SODIUM 146 mmol/L (136-145); UREA NITROGEN 16 mg/dL (7-18); eGFR NON AFRICAN AMERICAN 87 mL/min (90-120)
--- NOTE | 2019-08-07 07:00 | NUR ---
RECEIVED REPORT. ASSUMED CARE OF PATIENT. PATIENT RESTING IN BED WITH EYES OPEN. PATIENT 1ST STEP OVERLAY PATENT. NO DISTRESS. CALL LIGHT WITHIN REACH. NO FAMILY AT BEDSIDE.
--- NOTE | 2019-08-07 09:00 | NUR ---
CAREGIVE AT BEDSIDE PROVIDING AM CARES AND PATIENT TURNED AT THIS TIME. CALL LIGHT WITHIN REACH.
[2019-08-07 10:35] VITALS: BP 131/71
--- NOTE | 2019-08-07 11:24 | NUR ---
SPOKE WITH AND PATIENT WILL BE TRANSFERRED TO [facility] PER THE FAMILY REQUEST, BUT ALSO DUE TO CONDITION DETERIORATING. KELSEA WITH CASE MANAGEMENT NOTIFIED.
--- NOTE | 2019-08-07 12:36 | NUR ---
NEW ORDER RECIEVED TO START DITROPAN FOR BLADDER SPASMS. PATIENTS BACLOFEN IS ON HOLD AND NOW HAVING SPASMS WITH HER MCCLELLAND CATHETER CAUSING HER MCCLELLAND CATHETER TO LEAK URINE. ORDER PLACED TO SYSTEM.
[2019-08-07 12:50] VITALS: BP 106/68
--- NOTE | 2019-08-07 13:04 | MORECARE ---
CASE MANAGEMENT DISCHARGE SUMMARY PATIENT: TESS OTERO UNIT: [id number] ADM DATE: 07/24/19 AGE: 74 : 46 SEX: F ROOM/BED: D.0010 AUTHOR: GIOVANA,DOC PHYSICIAN: REFERRING PHYSICIAN: ANANT ODONNELL MD DATE OF SERVICE: 08/07/19 Discharge Plan Patient Name: TESS OTERO Facility: [facility]:[place] : 1945 Planned Disposition: Home with Home Health Anticipated Discharge Date: Discharge Date: Expected LOS: Initial Reviewer: [id number] Initial Review Date: 07/28/2019 Generated: 08/07/19 2:04 pm Comments DCP- Discharge Planning Updated by [email or web address]: Aggie Hyatt on 08/07/19 11:[address] LATE ENTRY 1100- 1230 PATIENT'S FAMILY VOICING CONCERNS THAT PATIENT HAD NOT IMPROVED SINCE ADMISSION REPORTED BY PRIMARY NURSE, DMITRI. SHE NOTIFIED THE NURSING COMMERCIAL REPORTER OF POSSIBLE TRANSFER REQUEST TO [facility]. PATIENT'S NEURO STATUS HAS NOT IMPROVED. NO NEURO SERVICE AVAILABLE AT [facility]. PATIENT ALSO HAS A RASH THAT HAS WORSEN. CAUSE UNKNOWN AND RASH HAS NOT RESPONDED TO TREATMENT. FAMILY SPOKE W/ DR NAIDU. DR SANTO SPOKE WITH THE FAMILY WHEN HE ROUNDED. BONITA, RECEIVED REQUEST FOR TRANSFER TO [facility]. BONITA REQUESTED FILMS ON DISC. APPROPRIATE FORMS OBTAINED. TARAH, NURSING COMMERCIAL REPORTER, IS COGNIZANT OF REQUEST. 1200 TC TO EASY ADMIT, TO FACILITATE THE TRANSFER. BONITA SPOKE W/ DAVIN. DISCUSSED THE REFERRAL AND PROVIDED REQUESTED INFORMATION. BONITA FAXED FACE SHEET W/ DR SANTO'S CONTACT PHONE NUMBER TO [phone]. DCP- Discharge Planning Updated by [id number]: Saravanan Chavez on 08/06/19 4:[address] Patient Name: TESS OTERO Encounter No: [id number] : 1945 Primary Insurance: [facility] MEDICARE SOLUTIONS Anticipated DC Date: Planned Disposition: Home with Home Health External Planned Provider: [facility] DCP follow-up note: CM SPOKE TO PT IN ROOM WHO REPORTS PLAN TO RETURN HOME WITH HER DAUGHTER WHO CARES FOR HER AT HOME, PT WILL REQUIRE AMBULANCE TRANPSPORT TO GET HOME. CM CALLED AND SPOKE TO PT'S DAUGHTER, TAMARA GOMEZ, WHO REPORTS TO BE PT'S 24 HOUR CAREGIVER AT HOME. THEY ALSO HAVE [facility] THAT THEY WANT RESUMED AT DISCHARGE. CHOICE LETTER COMPLETED. TAMARA DENIES FURHTER DISCHARGE NEEDS AND REPORTS THAT DR. NAIDU IS GOING TO WORK ON GETTING PT A BIPAP. CM REVIEWED CHART, PT'S CURRENT BLOOD GASSES DO NOT QUALIFY FOR TRILOGY MACHINE. CM EXPLAINED TO TAMARA THAT FURHTER TESTING RESULTS MAY BE NEEDED AND THAT THE DOCTOR WILL ORDER NECESSARY EQUIPMENT FOR CM TO ARRANGE AND THAT INSURANCE WOULD COVER IF PT QUALIFIES BY TEST RESULTS. TAMARA REPORTS UNDERSTANDING. PT TO TRANSPORT HOME VIA AMBULANCE. THEY USE [employer] L[employer] FOR PT AT HOME AND HAVE WHEELCHAIR, POWER WHEELCHAIR, BEDSIDE COMMODE AND HOSPITAL BED. CM SPOKE TO EDD OF [facility] WHO REPORTS THEY WILL RESUME PT'S HOME CARE AT DISCHARGE. PT WILL DISCHARGE HOME WITH DAUGHTER WHO IS PT'S CAREGIVER. TO RESUME HOME HEALTH, NOTIFY [facility] AT [phone], FAX DISCHARGE INFORMATION TO [facility] AT [phone]. PT TO TRANPSORT HOME VIA AMBULANCE. Saravanan Chavez, CASE MANAGEMENT DCP- Discharge Planning Updated by [id number]: Tamara Bhargavi on 07/28/19 1:[address] Patient Name: TESS OTERO Admission Status: ER Accout number: [id number] Admission Date: 07-24-2019 : 1945 Admission Diagnosis:DISORIENTATION, UNSPECIFIED Attending: ANANT SCHMID Current LOS: 4 Anticipated DC Date: Planned Disposition: Primary Insurance: [facility] MEDICARE SOLUTIONS Discharge Planning Comments: CM WENT TO MEET WITH PATIENT ABOUT DC PLANNING. THERE IS A VARNISH BLENDER AT BEDSIDE AND STATES TO CALL PATIENT'S DAUGHTER TAMARA. SHE DOES HAVE HH WITH [facility]. CM WILL FOLLOW UP WITH DAUGHTER ABOUT DC PLANNING. Kiln Door Builder: Tamara Burk DCPIA - Discharge Planning Initial Assessment Updated by [id number]: Saravanan Chavez on 08/06/19 5:21 pm * Is the patient Alert and Oriented? Yes * How many steps to enter\exit or inside your home? NONE * PCP DR. MARTINEZ * Pharmacy [facility] * Preadmission Environment Home with Family * ADLs Partial Dependent * Partial ADLs (Assistance needed) Ambulation Bathing Dressing Medication Management Toileting Transfers * Equipment Bedside [facility] Bed Nelly Lift Power Chair or Electric Scooter Wheelchair * Other Equipment NO MEDICAL EQUIPMENT PROVIDER PREFERENCE * List name and contact numbers for known caregivers / representatives who currently or will assist patient after discharge: TAMARA OTERO, DTR, * Verbal permission to speak to the caregivers and representatives has been obtained from the patient. Yes * Community resources currently utilized Home Health * Please name any agencies selected above. [facility] * Additional services required to return to the preadmission environment? No * Can the patient safely return to the preadmission environment? Yes * Has this patient been hospitalized within the prior 30 days at any hospital? No Coverage Notice Reviewer: [id number] Asha Chavez Notice Issued Date-Time: 08/06/2019 14:40 Notice Type: Patient Choice Letter Notice Delivered To: Family Member Relationship to Patient: Daughter Sales Operations Associate Name: TAMARA OTERO Delivery Method: PHONE - Phone [place] Days: Prior Verbal Notification: Recipient Understood Notice: Yes Recipient Signature: Med Rec Note Co-signed by Attending: Coverage Notice Comment: [facility] Last DP export: 08/06/19 4:29 p Patient Name: TESS OTERO Page 98207 at 1304 All edits/amendments must be made on the electronic document DICTATION DATE: 08/07/19 1304 NUISANCE WILDLIFE TRAPPER: TOSHIA 08/07/19 1304 RPT#: [id number] DC DATE: STATUS: ADM IN [facility] [address] [place] [address] END OF REPORT
--- NOTE | 2019-08-07 13:30 | NUR ---
SPOKE WITH SAE FROM [facility]. HISTORY GIVEN ON PATIENT. SAE NUMBER IS [phone] AT [facility]. CALLED AND LEFT VOICE MESSAGE ON HIS PHONE TO LET HIM KNOW THAT [facility] WOULD BE CALLING HIM SOON TO HAVE THE MD TO [facility] PHONE CONVERSATION FOR TRANSFER.
--- NOTE | 2019-08-07 13:34 | NUR ---
DRESSING CHANGED TO LEFT CHEST PORT PATIENT HAD BEEN PICKING AT THE OTHER DRESSING AND THE EDGES WERE NOT SECURED. ATTEMPTED TO DRAW BLOOD CULTURES FROM PORT AT THIS TIME, UNSUCCESSFUL. PORT FLUSHED X 3 BUT WILL NOT PULL.
--- NOTE | 2019-08-07 13:53 | NUR ---
WAITING FOR WOOD COATER TO BRING NEW 1ST STEP OVERLAY TO UNIT.
--- NOTE | 2019-08-07 14:57 | NUR ---
RECEIVED CALL FROM SAE AT [facility]. THEY WILL ACCEPT THE PATIENT AND SHE WILL CALL WHEN THEY HAVE A BED NUMBER. SAE IS FAXING US A PAPER TO SIGN STATING [facility] WILL ACCEPT THE PATIENT BACK UPON COMPLETION OF TREATMENT FROM [facility] IF NEEDED. SAE FAX NUMBER IS [phone].
[2019-08-07] MEDS ORDERED: OXYBUTYNIN CHLOR5 MG PO (15:42)
[2019-08-07] MEDS ORDERED: DIFLUCAN100 MG PO (15:43)
--- NOTE | 2019-08-07 16:52 | MORECARE ---
CASE MANAGEMENT DISCHARGE SUMMARY PATIENT: TESS OTERO UNIT: [id number] ADM DATE: 07/24/19 AGE: 74 : 46 SEX: F ROOM/BED: D.5918 AUTHOR: GIOVANA,DOC PHYSICIAN: REFERRING PHYSICIAN: ANANT ODONNELL MD DATE OF SERVICE: 08/07/19 Discharge Plan Patient Name: TESS OTERO Facility: [facility]:[place] : 1945 Planned Disposition: Home with Home Health Anticipated Discharge Date: Discharge Date: Expected LOS: Initial Reviewer: [id number] Initial Review Date: 07/28/2019 Generated: 08/07/19 5:52 pm Comments DCP- Discharge Planning Updated by [id number]: Aggie Hyatt on 08/07/19 3:[address] PATIENT HAS BEEN ACCEPTED BY [facility]. TC TO [facility] TO PLAN FOR TRANSPORT TO [facility] IN [place]. CM SPOKE W/ JULIUS. TRANSFERE BACK AGREEMENT PENDING FAMILY SIGNATURE HAS BEEN COMPLETED AND FAXED. ROOM NUMBER TO BE ASSIGNED WHEN PAPERWORK IS COMPLETED. XRAY DISC HAS BEEN REQUESTED. AWAIT DELIVERY. HEALTH SUMMARY TO BE SENT. FAMILY AT THE BEDSIDE. NURSING YARN HAULER, TARAH, FOLLOWING PROGRESS. DCP- Discharge Planning Updated by [id number]: Aggie Hyatt on 08/07/19 11:[address] LATE ENTRY 1100- 1230 PATIENT'S FAMILY VOICING CONCERNS THAT PATIENT HAD NOT IMPROVED SINCE ADMISSION REPORTED BY PRIMARY NURSE, DMITRI. SHE NOTIFIED THE NURSING YARN HAULER OF POSSIBLE TRANSFER REQUEST TO [facility]. PATIENT'S NEURO STATUS HAS NOT IMPROVED. NO NEURO SERVICE AVAILABLE AT [facility]. PATIENT ALSO HAS A RASH THAT HAS WORSEN. CAUSE UNKNOWN AND RASH HAS NOT RESPONDED TO TREATMENT. FAMILY SPOKE W/ DR NAIDU. DR SANTO SPOKE WITH THE FAMILY WHEN HE ROUNDED. BONITA, RECEIVED REQUEST FOR TRANSFER TO [facility]. BONITA REQUESTED FILMS ON DISC. APPROPRIATE FORMS OBTAINED. TARAH, NURSING YARN HAULER, IS COGNIZANT OF REQUEST. 1200 TC TO EASY ADMIT, TO FACILITATE THE TRANSFER. CM SPOKE W/ DAVIN. DISCUSSED THE REFERRAL AND PROVIDED REQUESTED INFORMATION. CM FAXED FACE SHEET W/ DR SANTO'S CONTACT PHONE NUMBER TO [phone]. DCP- Discharge Planning Updated by [id number]: Saravanan Chavez on 08/06/19 4:[address] Patient Name: TESS OTERO Encounter No: [id number] : 1945 Primary Insurance: [employer] MEDICARE SOLUTIONS Anticipated DC Date: Planned Disposition: Home with Home Health External Planned Provider: [facility] DCP follow-up note: CM SPOKE TO PT IN ROOM WHO REPORTS PLAN TO RETURN HOME WITH HER DAUGHTER WHO CARES FOR HER AT HOME, PT WILL REQUIRE AMBULANCE TRANPSPORT TO GET HOME. CM CALLED AND SPOKE TO PT'S DAUGHTER, TAMARA GOMEZ, WHO REPORTS TO BE PT'S 24 HOUR CAREGIVER AT HOME. THEY ALSO HAVE [facility] THAT THEY WANT RESUMED AT DISCHARGE. CHOICE LETTER COMPLETED. TAMARA DENIES FURHTER DISCHARGE NEEDS AND REPORTS THAT DR. NAIDU IS GOING TO WORK ON GETTING PT A BIPAP. CM REVIEWED CHART, PT'S CURRENT BLOOD GASSES DO NOT QUALIFY FOR TRILOGY MACHINE. CM EXPLAINED TO TAMARA THAT FURHTER TESTING RESULTS MAY BE NEEDED AND THAT THE DOCTOR WILL ORDER NECESSARY EQUIPMENT FOR CM TO ARRANGE AND THAT INSURANCE WOULD COVER IF PT QUALIFIES BY TEST RESULTS. TAMARA REPORTS UNDERSTANDING. PT TO TRANSPORT HOME VIA AMBULANCE. THEY USE [facility] FOR PT AT HOME AND HAVE WHEELCHAIR, POWER WHEELCHAIR, BEDSIDE COMMODE AND HOSPITAL BED. CM SPOKE TO EDD OF [facility] WHO REPORTS THEY WILL RESUME PT'S HOME CARE AT DISCHARGE. PT WILL DISCHARGE HOME WITH DAUGHTER WHO IS PT'S CAREGIVER. TO RESUME HOME HEALTH, NOTIFY [facility] AT [phone], FAX DISCHARGE INFORMATION TO [facility] AT [phone]. PT TO TRANPSORT HOME VIA AMBULANCE. Saravanan Chavez, CASE MANAGEMENT DCP- Discharge Planning Updated by [id number]: Tamara Burk on 07/28/19 1:[address] Patient Name: TESS OTERO Admission Status: ER Accout number: [id number] Admission Date: 07-24-2019 : 1945 Admission Diagnosis:DISORIENTATION, UNSPECIFIED Attending: ANANT SCHMID Current LOS: 4 Anticipated DC Date: Planned Disposition: Primary Insurance: [facility] MEDICARE SOLUTIONS Discharge Planning Comments: CM WENT TO MEET WITH PATIENT ABOUT DC PLANNING. THERE IS A EVP GENERAL COUNSEL AT BEDSIDE AND STATES TO CALL PATIENT'S DAUGHTER TAMARA. SHE DOES HAVE HH WITH [facility]. CM WILL FOLLOW UP WITH DAUGHTER ABOUT DC PLANNING. Chemical Processing Equipment Repairer: Tamara Burk DCPIA - Discharge Planning Initial Assessment Updated by [id number]: Saravanan Chavez on 08/06/19 5:21 pm * Is the patient Alert and Oriented? Yes * How many steps to enter\exit or inside your home? NONE * PCP DR. MARTINEZ * Pharmacy [facility] * Preadmission Environment Home with Family * ADLs Partial Dependent * Partial ADLs (Assistance needed) Ambulation Bathing Dressing Medication Management Toileting Transfers * Equipment Bedside [facility] Bed Nelly Lift Power Chair or Electric Scooter Wheelchair * Other Equipment NO MEDICAL EQUIPMENT PROVIDER PREFERENCE * List name and contact numbers for known caregivers / representatives who currently or will assist patient after discharge: TAMARA SHANNA, DTR, * Verbal permission to speak to the caregivers and representatives has been obtained from the patient. Yes * Community resources currently utilized Home Health * Please name any agencies selected above. [facility] * Additional services required to return to the preadmission environment? No * Can the patient safely return to the preadmission environment? Yes * Has this patient been hospitalized within the prior 30 days at any hospital? No Coverage Notice Reviewer: [id number] - Saravanan Chavez Notice Issued Date-Time: 08/06/2019 14:40 Notice Type: Patient Choice Letter Notice Delivered To: Family Member Relationship to Patient: Daughter Pallet Sorter Name: TAMARA OTERO Delivery Method: PHONE - Phone [place] Days: Prior Verbal Notification: Recipient Understood Notice: Yes Recipient Signature: Med Rec Note Co-signed by Attending: Coverage Notice Comment: [facility] Last DP export: 08/07/19 12:04 p Patient Name: TESS OTERO Page 15170 at 1652 All edits/amendments must be made on the electronic document DICTATION DATE: 08/07/191651 READING COACH: TOSHIA 08/07/191651 RPT#: [id number] DC DATE: STATUS: ADM IN [facility] [address] [place] [address] END OF REPORT
--- NOTE | 2019-08-07 17:33 | NUR ---
RECEIVED CALL FROM MICHEAL AT [facility]. PATIENT GOING TO ROOM H6-625 AND THE ACCEPTING MD IS . REPORT TO BE CALLED TO [phone].
--- NOTE | 2019-08-07 17:35 | NUR ---
[facility] CALLED AND ETA OF ARRIVAL TO TRANSPORT PATIENT IS 1.5 HRS.
--- NOTE | 2019-08-07 17:39 | NUR ---
CALLED MICHEAL BACK AT [facility] TRIAGE NURSE CALL CENTER AND LET HER KNOW THAT [facility] UNABLE TO PICK PATIENT UP FOR 1.5 HOURS SO THE ETA IS GOING TO BE MUCH LATER THAT 1930. MICHEAL THANKED THIS RESISTOR TESTER FOR CALLING.
--- NOTE | 2019-08-07 18:29 | NUR ---
RESPIRATORY CALLED AND REQUESTED BREATHING TREATMENT FOR PATIENT. O2 SAT 93% ON 4L VIA NASAL CANULA BUT LUNG SOUNDS DIMENISHED BILATERALLY. FAMILY AT BEDSIDE. CALL LIGHT WITHIN REACH.
--- NOTE | 2019-08-07 19:00 | NUR ---
RT AT BEDSIDE AND ABD'S ORDERED TO MAKE SURE PATIENTS OXYGEN STATUS HAS NOT CHANGED FROM PREVIOUS ABGS.
--- NOTE | 2019-08-07 19:44 | NUR ---
CALLED [facility] AT [phone] AND GAVE REPORT TO EMERALD BAIG.
[2019-08-07 20:00] VITALS: BP 146/64
[2019-08-07 21:06] LABS: HCVGENO - HEP C QUANT 4480000 IU/mL (()); HCVGENO - LOG 10 6.651 (())
--- NOTE | 2019-08-07 21:37 | NUR ---
PT TOOK OFF BI-PAP AND O2 NC BACK ON. RT NOTIFIED. WILL CONTINUE TO MONITOR.
--- NOTE | 2019-08-07 22:36 | NUR ---
[facility] CAME TO TRAFFIC SUPERVISOR PT. PT VITALS STABLE AT THIS TIME. NO S/S OF DISTRESS. PT FAMILY AT BEDSIDE. PT LEFT ON 4L O2 NC. NO IV. INFUSAPORT SALINE LOCKED.
--- NOTE | 2019-08-09 08:48 | MORECARE ---
CASE MANAGEMENT DISCHARGE SUMMARY PATIENT: TESS OTERO UNIT: [id number] ADM DATE: 07/24/19 AGE: 74 : 46 SEX: F ROOM/BED: D.0970 AUTHOR: GIOVANA,DOC PHYSICIAN: REFERRING PHYSICIAN: ANANT ODONNELL MD DATE OF SERVICE: 08/09/19 Discharge Plan Patient Name: TESS OTERO Facility: [facility]:[place] : 1945 Planned Disposition: Home with Home Health Anticipated Discharge Date: 08/07/19 Discharge Date: 08/07/2019 Expected LOS: 14 Initial Reviewer: [id number] Initial Review Date: 07/28/2019 Generated: 08/09/19 9:47 am Comments DCP- Discharge Planning Updated by [email or web address]: Aggie Hyatt on 08/07/19 3:[address] PATIENT HAS BEEN ACCEPTED BY [facility]. TC TO [facility] TO PLAN FOR TRANSPORT TO [facility] IN [place]. CM SPOKE W/ JULIUS. TRANSFERE BACK AGREEMENT PENDING FAMILY SIGNATURE HAS BEEN COMPLETED AND FAXED. ROOM NUMBER TO BE ASSIGNED WHEN PAPERWORK IS COMPLETED. XRAY DISC HAS BEEN REQUESTED. AWAIT DELIVERY. HEALTH SUMMARY TO BE SENT. FAMILY AT THE BEDSIDE. NURSING GRAILS WEB APPLICATION DEVELOPER, TARAH, FOLLOWING PROGRESS. DCP- Discharge Planning Updated by [id number]: Aggie Hyatt on 08/07/19 11:[address] LATE ENTRY 1100- 1230 PATIENT'S FAMILY VOICING CONCERNS THAT PATIENT HAD NOT IMPROVED SINCE ADMISSION REPORTED BY PRIMARY NURSE, DMITRI. SHE NOTIFIED THE NURSING GRAILS WEB APPLICATION DEVELOPER OF POSSIBLE TRANSFER REQUEST TO [facility]. PATIENT'S NEURO STATUS HAS NOT IMPROVED. NO NEURO SERVICE AVAILABLE AT [facility]. PATIENT ALSO HAS A RASH THAT HAS WORSEN. CAUSE UNKNOWN AND RASH HAS NOT RESPONDED TO TREATMENT. FAMILY SPOKE W/ DR NAIDU. DR SANTO SPOKE WITH THE FAMILY WHEN HE ROUNDED. BONITA, RECEIVED REQUEST FOR TRANSFER TO [facility]. BONITA REQUESTED FILMS ON DISC. APPROPRIATE FORMS OBTAINED. TARAH, NURSING GRAILS WEB APPLICATION DEVELOPER, IS COGNIZANT OF REQUEST. 1200 TC TO [facility] ADMIT, TO FACILITATE THE TRANSFER. CM SPOKE W/ DAVIN. DISCUSSED THE REFERRAL AND PROVIDED REQUESTED INFORMATION. CM FAXED FACE SHEET W/ DR SANTO'S CONTACT PHONE NUMBER TO [phone]. DCP- Discharge Planning Updated by [id number]: Saravanan Chavez on 08/06/19 4:[address] Patient Name: TESS OTERO Encounter No: [id number] : 1945 Primary Insurance: [employer] MEDICARE SOLUTIONS Anticipated DC Date: Planned Disposition: Home with Home Health External Planned Provider: [facility] DCP follow-up note: CM SPOKE TO PT IN ROOM WHO REPORTS PLAN TO RETURN HOME WITH HER DAUGHTER WHO CARES FOR HER AT HOME, PT WILL REQUIRE AMBULANCE TRANPSPORT TO GET HOME. CM CALLED AND SPOKE TO PT'S DAUGHTER, TAMARA GOMEZ, WHO REPORTS TO BE PT'S 24 HOUR CAREGIVER AT HOME. THEY ALSO HAVE [facility] THAT THEY WANT RESUMED AT DISCHARGE. CHOICE LETTER COMPLETED. TAMARA DENIES FURHTER DISCHARGE NEEDS AND REPORTS THAT DR. NAIDU IS GOING TO WORK ON GETTING PT A BIPAP. CM REVIEWED CHART, PT'S CURRENT BLOOD GASSES DO NOT QUALIFY FOR TRILOGY MACHINE. CM EXPLAINED TO TAMARA THAT FURHTER TESTING RESULTS MAY BE NEEDED AND THAT THE DOCTOR WILL ORDER NECESSARY EQUIPMENT FOR CM TO ARRANGE AND THAT INSURANCE WOULD COVER IF PT QUALIFIES BY TEST RESULTS. TAMARA REPORTS UNDERSTANDING. PT TO TRANSPORT HOME VIA AMBULANCE. THEY USE [facility] FOR PT AT HOME AND HAVE WHEELCHAIR, POWER WHEELCHAIR, BEDSIDE COMMODE AND HOSPITAL BED. CM SPOKE TO EDD OF [facility] WHO REPORTS THEY WILL RESUME PT'S HOME CARE AT DISCHARGE. PT WILL DISCHARGE HOME WITH DAUGHTER WHO IS PT'S CAREGIVER. TO RESUME HOME HEALTH, NOTIFY [facility] AT [phone], FAX DISCHARGE INFORMATION TO [facility] AT [phone]. PT TO TRANPSORT HOME VIA AMBULANCE. Saravanan Chavez, CASE MANAGEMENT DCP- Discharge Planning Updated by [id number]: Tamara Burk on 07/28/19 1:[address] Patient Name: TESS OTERO Admission Status: ER Accout number: [id number] Admission Date: 07-24-2019 : 1945 Admission Diagnosis:DISORIENTATION, UNSPECIFIED Attending: ANANT SCHMID Current LOS: 4 Anticipated DC Date: Planned Disposition: Primary Insurance: [facility] MEDICARE SOLUTIONS Discharge Planning Comments: CM WENT TO MEET WITH PATIENT ABOUT DC PLANNING. THERE IS A SECURITY CONTROL CENTER OPERATOR AT BEDSIDE AND STATES TO CALL PATIENT'S DAUGHTER TAMARA. SHE DOES HAVE HH WITH [facility]. CM WILL FOLLOW UP WITH DAUGHTER ABOUT DC PLANNING. Regional Loss Prevention Manager: Tamarapaulina Burk DCPIA - Discharge Planning Initial Assessment Updated by [id number]: Saravanan Chavez on 08/06/19 5:21 pm * Is the patient Alert and Oriented? Yes * How many steps to enter\exit or inside your home? NONE * PCP DR. MARTINEZ * Pharmacy [facility] * Preadmission Environment Home with Family * ADLs Partial Dependent * Partial ADLs (Assistance needed) Ambulation Bathing Dressing Medication Management Toileting Transfers * Equipment Bedside [facility] Bed Nelly Lift Power Chair or Electric Scooter Wheelchair * Other Equipment NO MEDICAL EQUIPMENT PROVIDER PREFERENCE * List name and contact numbers for known caregivers / representatives who currently or will assist patient after discharge: TAMARA DICKERSONNAH, DTR, * Verbal permission to speak to the caregivers and representatives has been obtained from the patient. Yes * Community resources currently utilized Home Health * Please name any agencies selected above. [facility] * Additional services required to return to the preadmission environment? No * Can the patient safely return to the preadmission environment? Yes * Has this patient been hospitalized within the prior 30 days at any hospital? No Coverage Notice Reviewer: [id number] - Saravanan Chavez Notice Issued Date-Time: 08/06/2019 14:40 Notice Type: Patient Choice Letter Notice Delivered To: Family Member Relationship to Patient: Daughter Corporate Technical Recruiter Name: TAMARA OTERO Delivery Method: PHONE - Phone [place] Days: Prior Verbal Notification: Recipient Understood Notice: Yes Recipient Signature: Med Rec Note Co-signed by Attending: Coverage Notice Comment: [facility] Last DP export: 08/07/19 3:52 p Patient Name: TESS OTERO Page 40644 at 0848 All edits/amendments must be made on the electronic document DICTATION DATE: 08/09/19846 SALVAGE ENGINEERING TECHNICIAN: DM 08/09/19846 RPT#: [id number] DC DATE:08/07/19 STATUS: DIS IN [facility] [address] [place] [address] END OF REPORT
== END 2019-08-07 22:38 | disposition short-term general hospital (02) | DRG 698 ==
LOC: D.ER 14:35 → D.M2 17:14 → D.SDCHOLD 07-26 12:05 → D.M2 07-26 12:10 → D.SDCHOLD 07-26 13:55 → D.M2 07-26 13:55
PROVIDERS: Family Medicine; Internal Medicine Gastroenterology; Internal Medicine Nephrology; Internal Medicine Pulmonary Disease; ADMIT Family Medicine; ATTEND Family Medicine
PROC: 5A09357 Assistance with Respiratory Ventilation, Less than 24 Consecutive Hours, Continuous Positive Airway Pressure (ICD-10-PCS; principal; 2019-07-27)
DX: T83.511A Infection and inflammatory reaction due to indwelling urethral catheter, initial encounter (principal); R53.2 Functional quadriplegia; G93.41 Metabolic encephalopathy; J96.22 Acute and chronic respiratory failure with hypercapnia; J96.21 Acute and chronic respiratory failure with hypoxia; I50.31 Acute diastolic (congestive) heart failure; D61.818 Other pancytopenia; J98.11 Atelectasis; N39.0 Urinary tract infection, site not specified; G40.909 Epilepsy, unspecified, not intractable, without status epilepticus; F32.9 Major depressive disorder, single episode, unspecified; F41.9 Anxiety disorder, unspecified; E66.01 Morbid (severe) obesity due to excess calories; Z68.33 Body mass index [BMI] 33.0-33.9, adult; I11.0 Hypertensive heart disease with heart failure; Y84.9 Medical procedure, unspecified as the cause of abnormal reaction of the patient, or of later complication, without mention of misadventure at the time of the procedure; K74.60 Unspecified cirrhosis of liver; B19.20 Unspecified viral hepatitis C without hepatic coma

== ENCOUNTER 2019-08-11 13:13 | Inpatient (IN) | payer MEDICARE, MEDICAID ==
[~2019-08-11] VITALS: Ht 165.1 cm; Wt 123.4 kg
[~2019-08-11 13:13] MED LIST changes: +AMITRIPTYLINE H50 MG PO; +AZO STANDARD95 MG PO; +DIFLUCAN100 MG PO; +DONEPEZIL HCL10 MG PO; +MACRODANTIN50 MG PO; +MELATONIN10 M1 PO; +MULTI-DAY VITAM1 TAB PO; +OXYBUTYNIN CHLOR5 MG PO; +PROBIOTIC1 EAC1 PO; +ZYLOPRIM100 MG PO; +ZYPREXA2.5 MG PO
--- NOTE | 2019-08-11 18:37 | NUR ---
RECEIVED PT FROM [facility] VIA EMT'S, PT IS ALERT AND ORIENTED TRANSFERRED TO BED IN ROOM WITH NO COMPLICATIONS, DAUGHTER AT BEDSIDE, DID QUICK START.
--- NOTE | 2019-08-11 19:30 | NUR ---
LYING IN BED WITH EYES CLOSED. RESP NONLABORED. O2 @ 4L/NC. DAUGHTER AT BEDSIDE. DAUGHTER JUST GAVE PT A BED BATH AND CHANGED LINENS. BED ALARM IN USE FOR PT SAFETY. PT AWAKENED DURING ASSESSMENT QUESTION. PT IS CONFUSED. ORIENTED TO SELF ONLY. EDEMA NOTED TO BLE. RED RASH NOTED ALL OVER BODY WITH SOME EXCORIATION NOTED TO INNER THIGHS. PT HAS CHRONIC MCCLELLAND CATH WITH RICK URINE NOTED. LT CHEST WALL MEDIPORT IS SALINE LOCKED. BRUISES NOTED TO BUE. 1ST STEP OVERLAY MATTRESS IN USE. NO DISTRESS. SR ELEVATED X2. CL IN REACH.
[2019-08-11 20:34] VITALS: BP 101/68
[2019-08-11] MEDS ORDERED: CHRONULAC30 ML PO (21:58)
--- NOTE | 2019-08-11 23:31 | NUR ---
OLVIN CONNOR CAME TO ASSESS PT. NEW ORDERS NOTED. TELEMETRY SHOWS SR WITH RATE OF 96. MEDICATED WITH BENADRYL 50 MG PO FOR ITCHING/RASH. PT IS RESTLESS AND CONFUSED. BED ALARM IN USE. CL IN REACH.
[2019-08-12] VITALS (7 sets, daily range): BP systolic 107–123; BP diastolic 57–70; Ht 165.1 cm; Wt 123.4 kg
--- NOTE | 2019-08-12 03:43 | NUR ---
FAMILY MEMBERS AT BEDSIDE. PT EYES CLOSED. FAMILY MASSAGING PTS SHOULDERS AND BACK. NO DISTRESS. CL IN REACH. BED ALARM ON. PT HASNT SLEPT MUCH, NAPPING OFF AND ON.
--- NOTE | 2019-08-12 07:00 | NUR ---
ALERT AND ORIENTED X1, RESTING IN BED. FAMILY AT BEDSIDE. NO C/O PAIN. NO S/S OF ACUTE DISTRESS NOTED. ON 4L O2, NC. LEFT CHEST PORT, SL. SITE PATENT WITHOUT REDNESS OR SWELLING. RASH TO TORSO AND BLE. MCCLELLAND CATHETER PRESENT. ON 1ST STEP OVERLAY MATTRESS. ON TELEMETRY, SR 90. PT DENIES ANY NEEDS AT THIS TIME. CALL LIGHT IN REACH. WILL CONTINUE TO MONITOR.
[2019-08-12 08:07] LABS: BASOPHILS 0.4 % (0-2); EOSINOPHILS 0.2 % (0-7); HEMATOCRIT 44.2 % (36.0-48.0); HEMOGLOBIN 12.7 g/dL (12-16); IMMATURE GRANULOCYTES 0.4 % (0-5); LYMPHOCYTES 27.5 % (15-50); MCH 23.4 pg (26.0-34.0); MCHC 28.7 g/dL (31.0-37.0); MCV 81.4 fL (80.0-100.0); MONOCYTES 8.7 % (2-11); NEUTROPHILS 62.8 % (40-80); RBC 5.43 10x6/uL (4.00-5.40); RDW 24.2 % (11.5-14.5); WBC 5.3 10x3/uL (4.8-10.8)
[2019-08-12 08:10] LABS: CALC OSMOLALITY 291 mosm/kg (275-300); CALCIUM 8.4 mg/dL (8.5-10.1); CARBON DIOXIDE 34.6 mmol/L (21.0-32.0); CHLORIDE - SERUM 106 mmol/L (98-107); CREATININE - SERUM 0.6 mg/dL (0.6-1.3); GLUCOSE 100 mg/dL (74-106); PLATELET COUNT 205 10x3/uL (130-400); POTASSIUM - SERUM 3.5 mmol/L (3.5-5.1); SODIUM 146 mmol/L (136-145); UREA NITROGEN 14 mg/dL (7-18); eGFR NON AFRICAN AMERICAN > 90 mL/min (90-120)
--- NOTE | 2019-08-12 15:00 | NUR ---
DISCONTINUED MCCLELLAND, LEAKING AROUND BULB. INSERTED A NEW MCCLELLAND, 20GA USING STERILE TECHNIQUE. OBTAINED URINE SPECIMEN PER PHYSICIAN ORDERS AND TAKEN TO LAB. PT DENIES ANY NEEDS AT THIS TIME. CALL LIGHT IN REACH.
[2019-08-12 15:22] LABS: APPEARANCE CLOUDY (CLEAR); BILIRUBIN NEGATIVE (NEGATIVE); COLOR YELLOW (YELLOW); GLUCOSE NEGATIVE (NEGATIVE); KETONE NEGATIVE (NEGATIVE); NITRITE POSITIVE (NEGATIVE); PROTEIN NEGATIVE (NEGATIVE); SPECIFIC GRAVITY 1.015 (1.005-1.020); UROBILINOGEN NORMAL (NORMAL)
[2019-08-12 15:24] LABS: BACTERIA MODERATE /hpf (NEGATIVE); EPITHELIAL CELLS 0-5 /hpf (0-5); RED CELLS - URINE 0-5 /hpf (0-5); WHITE CELLS - URINE 25-50 /hpf (NEGATIVE)
--- NOTE | 2019-08-12 17:15 | NUR ---
I have reviewed this patient and I concur with the Shift Assessment completed by the Licensed Practical Nurse today this shift.
--- NOTE | 2019-08-12 18:55 | NUR ---
RESTING IN BED, EYES OPEN. NO C/O PAIN. C/O ITCHING, GAVE BENADRYL FOR ITCHING. NO S/S OF ACUTE DISTRESS NOTED. PT DENIES ANY NEEDS. FAMILY AT BEDSIDE. CALL LIGHT IN REACH. WILL CONTINUE TO MONITOR.
--- NOTE | 2019-08-12 19:20 | NUR ---
LYING IN BED. ORIENTED X1. CONFUSED. FAMILY AT BEDSIDE. RESP NONLABORED. O2 @ 4L/NC. EDEMA NOTED TO BLE. RED RASH NOTED ALL OVER BODY AND IS ITCHING. MCCLELLAND CATH PATENT AND DRAINING DARK YELLOW URINE. BRUISES NOTED TO BUE. AIR MATTRESS IN USE. TELEMETRY SHOWS SR WITH RATE OF 86. LT CW MEDIPORT IS SALINE LOCKED. LETHARGIC. MEDICATED WITH BENADRYL PRIOR TO SHIFT CHANGE FOR ITCHING. CL IN REACH. BED ALARM IN USE FOR PT SAFETY.
--- NOTE | 2019-08-13 00:31 | NUR ---
INCONT OF BOWELS.PERICARE PERFORMED AND CALMOSEPTINE APPLIED. REPOSITIONED FOR COMFORT. MEDICATED WITH BENADRYL FOR C/O ITCHING FROM RED RASH ALL OVER. DAUGHTERS AT BEDSIDE. CL IN REACH. BED ALARM ON
[2019-08-13 01:27] VITALS: BP 120/63
--- NOTE | 2019-08-13 05:19 | NUR ---
[facility] TO DO [facility]IPHER[facility] STICK.
[2019-08-13 05:25] LABS: BASOPHILS 0.3 % (0-2); EOSINOPHILS 0.2 % (0-7); HEMATOCRIT 43.5 % (36.0-48.0); HEMOGLOBIN 12.5 g/dL (12-16); IMMATURE GRANULOCYTES 0.2 % (0-5); LYMPHOCYTES 18.7 % (15-50); MCH 23.6 pg (26.0-34.0); MCHC 28.7 g/dL (31.0-37.0); MCV 82.1 fL (80.0-100.0); MONOCYTES 8.6 % (2-11); PLATELET COUNT 188 10x3/uL (130-400); WBC 6.3 10x3/uL (4.8-10.8)
[2019-08-13 05:29] VITALS: BP 109/57
[2019-08-13 05:51] LABS: CALC OSMOLALITY 286 mosm/kg (275-300); CALCIUM 8.9 mg/dL (8.5-10.1); CARBON DIOXIDE 34.6 mmol/L (21.0-32.0); CHLORIDE - SERUM 104 mmol/L (98-107); CREATININE - SERUM 0.7 mg/dL (0.6-1.3); GLUCOSE 100 mg/dL (74-106); MAGNESIUM - SERUM 1.4 mg/dL (1.8-2.4); PHOSPHOROUS 2.6 mg/dL (2.5-4.9); POTASSIUM - SERUM 3.7 mmol/L (3.5-5.1); SODIUM 144 mmol/L (136-145); UREA NITROGEN 13 mg/dL (7-18); eGFR NON AFRICAN AMERICAN 87 mL/min (90-120)
--- NOTE | 2019-08-13 07:00 | NUR ---
RESTING IN BED, EYES OPEN. FAMILY AT BEDSIDE. NO C/O PAIN. NO S/S OF ACUTE DISTRESS NOTED. FUNCTIONAL QUAD. CHRONIC MCCLELLAND CATHETER. ON 4L O2, NC. LEFT CHEST PORT, SL. SITE PATENT WITHOUT REDNESS OR SWELLING. TELEMETRY 91 SR WITH PVCS. RASH TO TORSO, BUE, AND BLE, PHYSICIAN AWARE. SCDS PRESENT. PT DENIES ANY NEEDS AT THIS TIME. CALL LIGHT IN REACH. WILL CONTINUE TO MONITOR.
--- NOTE | 2019-08-13 10:07 | NUR ---
RESTING IN BED, EYES OPEN. ALERT AND ORIENTED X1. FUNCTIONAL QUAD. CHRONIC MCCLELLAND. RASH TO TORSO, BUE, AND BLE. SCDS ON. ON 4L O2, NC. LEFT CHEST PORT, SITE PATENT WITHOUT REDNESS OR SWELLING. TELEMETRY 91 SR WITH PVCS. FAMILY AT BEDSIDE. NO C/O PAIN. NO S/S OF ACUTE DISTRESS NOTED. CALL LIGHT IN REACH. PT DENIES ANY NEEDS AT THIS TIME. WILL CONTINUE TO MONITOR.
[2019-08-13 12:21] VITALS: BP 104/42
--- NOTE | 2019-08-13 16:19 | MORECARE ---
CASE MANAGEMENT DISCHARGE SUMMARY PATIENT: TESS FLOOD UNIT: [id number] ADM DATE: 08/11/19 AGE: 74 : [birth year] SEX: F ROOM/BED: D.2236 AUTHOR: ENRIKE AKHTAR PHYSICIAN: REFERRING PHYSICIAN: CIRA NUÑEZ MD DATE OF SERVICE: 08/13/19 Discharge Plan Patient Name: TESS FLOOD Facility: [facility]:[place] : 1945 Planned Disposition: Home Hlth Svc w Plan Readm Anticipated Discharge Date: Discharge Date: Expected LOS: Initial Reviewer: [id number] Initial Review Date: 08/13/2019 Generated: 08/13/19 5:18 pm Comments DCP- Discharge Planning Updated by [id number]: Whit Albarado on 08/13/19 3:[address] Patient Name: TESS FLOOD Admission Status: Elective Accout number: [id number] Admission Date: 08-11-2019 : 1945 Admission Diagnosis:ENCEPHALOPATHY, UNSPECIFIED Attending: CIRA NUÑEZ Current LOS: 2 Anticipated DC Date: Planned Disposition: Home Hlth Svc w Plan Readm Primary Insurance: [facility] MEDICARE SOLUTIONS Discharge Planning Comments: CM met with patient to discuss discharge planning, she is alone in the room. She states she plans on returning home at discharge. She states that she doesn't know who her home health agency is. She tells me I can call her daughter, Tamara, for more information. I called Tamara and she states that her mother lives with her son and grandson. Tamara states that her mother is never left alone and dependent upon them. She states they have all the DME they need to take care of her. Tamara lives across the street from her. She states that they have discussed her going to a facility, but at this time they have decided she is to come back home with resumption of [facility]. She states they have a wc accessible van, but it has a broken window that needs fixed before they can use it again, so she will need ambulance transfer back home. CM will continue to follow and assist with discharge planning/needs. Oil Field Laborer: Whit Albarado DCPIA - Discharge Planning Initial Assessment Updated by [id number]: Whit Verena on 08/13/19 4:10 pm * Is the patient Alert and Oriented? Yes * How many steps to enter\exit or inside your home? 0/0 * PCP Dr. Bruner * Pharmacy [facility] * Preadmission Environment Acute Care Facility * Facility Name [facility] * ADLs Partial Dependent * Partial ADLs (Assistance needed) Ambulation Bathing Dressing Medication Management Toileting Transfers * Equipment Bedside [facility] Bed Nelly Lift Oxygen Power Chair or Electric Scooter Wheelchair * Other Equipment Portable oxygen * List name and contact numbers for known caregivers / representatives who currently or will assist patient after discharge: Tamara Flood - [phone] or [phone] * Verbal permission to speak to the caregivers and representatives has been obtained from the patient. Yes * Community resources currently utilized Home Health * Please name any agencies selected above. [facility] is [facility] for oxygen needs * Additional services required to return to the preadmission environment? No * Can the patient safely return to the preadmission environment? Yes * Has this patient been hospitalized within the prior 30 days at any hospital? Yes Coverage Notice Reviewer: [id number] - Whit Albarado Notice Issued Date-Time: 08/13/2019 16:17 Notice Type: Patient Choice Letter Notice Delivered To: Family Member Relationship to Patient: Daughter Hatch Tender Name: Tamara Flood Delivery Method: PHONE - Phone [place] Days: Prior Verbal Notification: Recipient Understood Notice: Yes Recipient Signature: Med Rec Note Co-signed by Attending: Coverage Notice Comment: [facility] for [facility] Patient Name: TESS FLOOD Page 30054 at 1619 All edits/amendments must be made on the electronic document DICTATION DATE: 08/13/191617 OPTOMETRY ASSISTANT: TOSHIA 08/13/191617 RPT#: [id number] DC DATE: STATUS: ADM IN [facility] [address] [place] [address] END OF REPORT
[2019-08-13 17:39] VITALS: BP 120/63
--- NOTE | 2019-08-13 18:46 | NUR ---
RESTING IN BED, EYES OPEN. FAMILY AT BEDSIDE. NO C/O PAIN. C/O ITCHING, GAVE BENADRYL FOR ITCHING. SPOKE WITH TYRONE WRIGHT, ORDERING TOPICAL CREAM WELL. NO S/S OF ACUTE DISTRESS NOTED. DENIES ANY NEEDS AT THIS TIME. CALL LIGHT IN REACH. WILL CONTINUE TO MONITOR.
[2019-08-13 20:00] VITALS: BP 116/54
[2019-08-14] VITALS: BP 125/61
--- NOTE | 2019-08-14 00:38 | NUR ---
PT RESTING IN BED. EYES CLOSED. NO SIGNS OF DISTRESS. BREATHING EVEN AND UNLABORED. IV SITE LT CHEST PORT SL. DRESSING CLEAN DRY AND INTACT. NO SIGNS OF INFECTION. TELE MONITOR ON 90 SINUS. GENERLIZED RED RASH. BOWEL SOUNDS ACTIVE. MCCLELLAND IN PLACE CLEAN DRY AND INTACT. NO SIGNS OF INFECTION. WILL CONTINUE PLAN OF CARE. CALL LIGHT IN REACH. BED LOWERED AND LOCKED. BED RAILS UPX2. ROBINSON ALARM ON.
--- NOTE | 2019-08-14 02:10 | NUR ---
I have reviewed this patient and I concur with the Shift Assessment completed by the Licensed Practical Nurse today this shift.
[2019-08-14 04:00] VITALS: BP 110/54
--- NOTE | 2019-08-14 07:00 | NUR ---
PATIENT RECIEVED FROM PREVIOUS SHIFT RESTING WITH NO NEEDS VOICED. ORIENTED WITH FAMILY AT SIDE. CL IN REACH.
[2019-08-14 07:16] LABS: BASOPHILS 0.4 % (0-2); EOSINOPHILS 0.2 % (0-7); HEMATOCRIT 42.6 % (36.0-48.0); HEMOGLOBIN 12.1 g/dL (12-16); IMMATURE GRANULOCYTES 0.2 % (0-5); LYMPHOCYTES 18.8 % (15-50); MCH 23.5 pg (26.0-34.0); MCHC 28.4 g/dL (31.0-37.0); MCV 82.9 fL (80.0-100.0); MONOCYTES 10.3 % (2-11); NEUTROPHILS 70.1 % (40-80); PLATELET COUNT 163 10x3/uL (130-400); RBC 5.14 10x6/uL (4.00-5.40); RDW 23.6 % (11.5-14.5)
[2019-08-14 07:38] LABS: CALC OSMOLALITY 279 mosm/kg (275-300); CALCIUM 8.9 mg/dL (8.5-10.1); CARBON DIOXIDE 37.8 mmol/L (21.0-32.0); CHLORIDE - SERUM 103 mmol/L (98-107); CREATININE - SERUM 0.6 mg/dL (0.6-1.3); GLUCOSE 96 mg/dL (74-106); MAGNESIUM - SERUM 1.4 mg/dL (1.8-2.4); PHOSPHOROUS 2.7 mg/dL (2.5-4.9); POTASSIUM - SERUM 3.7 mmol/L (3.5-5.1); SODIUM 141 mmol/L (136-145); UREA NITROGEN 11 mg/dL (7-18); eGFR NON AFRICAN AMERICAN > 90 mL/min (90-120)
[2019-08-14 08:41] VITALS: BP 112/50
[2019-08-14 14:19] VITALS: BP 112/58
[2019-08-14 17:01] VITALS: BP 125/51
--- NOTE | 2019-08-14 18:36 | NUR ---
PATIENTS DAUGHTER HER AND IS UPSET THAT PATIENT WAS CHANGED FROM KEPPRA TO DILANTIN AFTER BEING ON KEPPRA FOR SEVERAL YEARS. NOTIFIED DR NUÑEZ OF DAUGHTERS CONCERNS AND HE STATED THAT HE TOOK PATIENT OF KEPPRA DUE TO PROBABLE CAUSE OF RASH THAT PATIENT CURRENTLY HAS. EXPLAINED THIS TO DAUGHTER AND SHE AGEED TO LET PATIENT HAVE DILANTIN FOR SEIZURE PREVENTION. STATING "I WILL JUST LET HIM PROVE HIMSELF WRONG AND IT WILL BE A LAW SUIT IF SHE HAS A SEIZURE". PATIENT IS IN NO DISTRESS AT THIS TIME, BUT IS MORE CONFUSED DAY PROGRESSES. FAMILY AT BEDSIDE, CL IN REACH
[2019-08-14 20:00] VITALS: BP 127/65
[2019-08-15] VITALS: BP 127/67
--- NOTE | 2019-08-15 03:01 | NUR ---
PT RESTING IN BED. EYES CLOSED. NO SIGNS OF DISTRESS. BREATHING EVEN AND UNLABORED. IV SITE LT CHEST PORT. DRESSING CLEAN DRY AND INTACT. NO SIGNS OF INFECTION. BOWEL SOUNDS ACTIVE. MCCLELLAND IN PLACE CLEAN DRY AND INTACT. NO SIGNS OF INFECTION. GENERLIZED RED RASH. WILL CONTINUE PLAN OF CARE. CALL LIGHT IN REACH. BED LOWERED AND LOCKED. BED RAILS UPX2. 1ST STEP OVERLAY MATTERSS ON.
[2019-08-15 04:00] VITALS: BP 109/57
--- NOTE | 2019-08-15 04:44 | NUR ---
I have reviewed this patient and I concur with the Shift Assessment completed by the Licensed Practical Nurse today this shift.
[2019-08-15 06:11] LABS: BASOPHILS 0.8 % (0-2); EOSINOPHILS 0 % (0-7); HEMATOCRIT 43.4 % (36.0-48.0); HEMOGLOBIN 12.7 g/dL (12-16); MCH 24.1 pg (26.0-34.0); MCHC 29.3 g/dL (31.0-37.0); MCV 82.4 fL (80.0-100.0); MONOCYTES 10.6 % (2-11); NEUTROPHILS 64.6 % (40-80); PLATELET COUNT 170 10x3/uL (130-400); RBC 5.27 10x6/uL (4.00-5.40); RDW 23.9 % (11.5-14.5); WBC 5.1 10x3/uL (4.8-10.8)
[2019-08-15 06:15] LABS: CALC OSMOLALITY 281 mosm/kg (275-300); CARBON DIOXIDE 38.5 mmol/L (21.0-32.0); CHLORIDE - SERUM 100 mmol/L (98-107); CREATININE - SERUM 0.6 mg/dL (0.6-1.3); GLUCOSE 105 mg/dL (74-106); MAGNESIUM - SERUM 1.7 mg/dL (1.8-2.4); PHOSPHOROUS 2.8 mg/dL (2.5-4.9); POTASSIUM - SERUM 3.8 mmol/L (3.5-5.1); SODIUM 142 mmol/L (136-145); UREA NITROGEN 10 mg/dL (7-18); eGFR NON AFRICAN AMERICAN > 90 mL/min (90-120)
[2019-08-15 07:59] VITALS: BP 140/81
--- NOTE | 2019-08-15 08:46 | NUR ---
PATIENTS DAUGHTER IS HERE AND SPEAKING IN VERY HATEFULL AND INAPPROPRIATE TONE. SHE WAS YELLING AND CURSING ON PHONE PRIOR TO ARRIVING TO HOSPITAL AND AFTER ARRIVING. NOTIFIED OIL EXPLORATION ENGINEER OF DAUGHERS OUTBURST AND COMPLAINT OF NOT GETTING ANSWERS CONCERNING HER MOTHERS CARE. DR NUÑEZ AND HE HAS AGREED TO MEET WITH DAUGHTER AROUND 3PM TODAY
[2019-08-15 14:17] VITALS: BP 130/71
--- NOTE | 2019-08-15 14:30 | NUR ---
PATIENT REPORTS DISCOMFORT AT CATHETER AREA, WHEN ASSESSED CATHETER BULB WAS PART WAY OUT, BULB DEFLATED AND REMOVED REST OF CATHETER TIP. REPLACED MCCLELLAND 16F 10CC USING STERILE TECHNIQUE. 200ML OF YELLOW URINE COLLECTED TO BEDSIDE DRAINAGE. PATIENT TOLERATED WELL.
--- NOTE | 2019-08-15 18:16 | NUR ---
PATIENTS DAUGHTER SHEILA IS HERE AND IS MUCH MORE PLEASANT THAT EARLIER TODAY. DR NUÑEZ VISITED WITH DAUGHTER AND PATIENT WITH POSSIBLE DISCHARGE PLANNED TOMORROW.
[2019-08-15 20:00] VITALS: BP 139/76
--- NOTE | 2019-08-15 20:00 | NUR ---
ALERT, CONFUSED RESTING IN BED, DENIES PAIN, O2 IN USE VIA N/C, MCCLELLAND CATH TO GRAVITY DRAINAGE, SEE SHIFT ASSESSMENT CALL LIGHT IN REACH
[2019-08-16 04:00] VITALS: BP 132/60
[2019-08-16 05:44] LABS: BASOPHILS 0.5 % (0-2); EOSINOPHILS 0.2 % (0-7); HEMOGLOBIN 11.7 g/dL (12-16); LYMPHOCYTES 22.6 % (15-50); MCH 23.6 pg (26.0-34.0); MCHC 28.5 g/dL (31.0-37.0); MCV 82.8 fL (80.0-100.0); MONOCYTES 11.2 % (2-11); NEUTROPHILS 65.5 % (40-80); PLATELET COUNT 155 10x3/uL (130-400); RBC 4.95 10x6/uL (4.00-5.40); RDW 23.5 % (11.5-14.5); WBC 4.2 10x3/uL (4.8-10.8)
[2019-08-16 06:05] LABS: CALC OSMOLALITY 281 mosm/kg (275-300); CALCIUM 9.4 mg/dL (8.5-10.1); CHLORIDE - SERUM 101 mmol/L (98-107); GLUCOSE 97 mg/dL (74-106); PHOSPHOROUS 3.4 mg/dL (2.5-4.9); POTASSIUM - SERUM 4.2 mmol/L (3.5-5.1); SODIUM 142 mmol/L (136-145); UREA NITROGEN 9 mg/dL (7-18)
[2019-08-16 06:31] LABS: CREATININE - SERUM 0.4 mg/dL (0.6-1.3); eGFR NON AFRICAN AMERICAN > 90 mL/min (90-120)
[2019-08-16 06:32] LABS: CARBON DIOXIDE 40.2 mmol/L (21.0-32.0)
--- NOTE | 2019-08-16 07:00 | NUR ---
RESTING IN BED, EYES CLOSED. RESPIRATIONS EVEN AND UNLABORED. NO C/O PAIN. NO S/S OF ACUTE DISTRESS NOTED. DENIES ANY NEEDS AT THIS TIME. CALL LIGHT IN REACH. WILL CONTINUE TO MONITOR.
[2019-08-16 08:36] VITALS: BP 110/56
[2019-08-16 12:38] VITALS: BP 122/63
--- NOTE | 2019-08-16 14:21 | NUR ---
Nutrition follow-up: Dioet: Low sodium with gr meat, no caffeine PO itnake ~60% average of meals Labs reviewed Wt: 271# Possible d/c in the morning PO intake fair to good at meals RDN following.
[2019-08-16 17:25] VITALS: BP 118/58
--- NOTE | 2019-08-16 18:42 | NUR ---
RESTING IN BED, EYES OPEN. NO C/O PAIN. NO S/S OF ACUTE DISTRESS NOTED. DENIES ANY NEEDS AT THIS TIME. CALL LIGHT IN REACH. FAMILY AT BEDSIDE. WILL CONTINUE TO MONITOR.
--- NOTE | 2019-08-16 19:21 | NUR ---
IN BED ON TELEPHONE, ABLE TO VOICE ALL NEEDS, DENIES ANY PAIN, PORT TO LEFT CHEST IS PATENT TO FLUSH, SALINE LOC. MCCLELLAND IS PATENT WITH RICK URINE DRAINING TO CDS. WILL NOTE ANY CHANGE.
[2019-08-16 20:53] VITALS: BP 128/56
[2019-08-17 01:33] VITALS: BP 118/49
--- NOTE | 2019-08-17 03:36 | NUR ---
I have reviewed this patient and I concur with the Shift Assessment completed by the Licensed Practical Nurse today this shift.
[2019-08-17 04:56] VITALS: BP 124/50
[2019-08-17 06:38] LABS: BASOPHILS 0.6 % (0-2); EOSINOPHILS 0.2 % (0-7); HEMOGLOBIN 11.8 g/dL (12-16); LYMPHOCYTES 34.3 % (15-50); MCH 23.8 pg (26.0-34.0); MCHC 28.8 g/dL (31.0-37.0); MCV 82.8 fL (80.0-100.0); MONOCYTES 12.9 % (2-11); PLATELET COUNT 128 10x3/uL (130-400); RBC 4.95 10x6/uL (4.00-5.40); RDW 23.9 % (11.5-14.5); WBC 4.9 10x3/uL (4.8-10.8)
[2019-08-17 06:57] LABS: CALC OSMOLALITY 278 mosm/kg (275-300); CALCIUM 9.1 mg/dL (8.5-10.1); CHLORIDE - SERUM 98 mmol/L (98-107); GLUCOSE 89 mg/dL (74-106); MAGNESIUM - SERUM 1.7 mg/dL (1.8-2.4); PHOSPHOROUS 3.1 mg/dL (2.5-4.9); POTASSIUM - SERUM 3.8 mmol/L (3.5-5.1); SODIUM 141 mmol/L (136-145); UREA NITROGEN 11 mg/dL (7-18)
--- NOTE | 2019-08-17 07:00 | NUR ---
ALERT AND ORIENTED X2, RESTING IN BED. NO C/O PAIN. NO S/S OF ACUTE DISTRESS NOTED. FAMILY AT BEDSIDE. DENIES ANY NEEDS AT THIS TIME. CALL LIGHT IN REACH. WILL CONTINUE TO MONITOR.
[2019-08-17 07:11] LABS: CREATININE - SERUM 0.6 mg/dL (0.6-1.3); eGFR NON AFRICAN AMERICAN > 90 mL/min (90-120)
[2019-08-17 07:12] LABS: CARBON DIOXIDE 42.6 mmol/L (21.0-32.0)
--- NOTE | 2019-08-17 08:13 | NUR ---
ALERT AND ORIENTED X2, RESTING IN BED. FAMILY AT BEDSIDE. NO C/O PAIN. NO S/S OF ACUTE DISTRESS NOTED. DENIES ANY NEEDS AT THIS TIME. CALL LIGHT IN REACH. WILL CONTINUE TO MONITOR.
[2019-08-17 09:09] VITALS: BP 109/64
--- NOTE | 2019-08-17 09:51 | NUR ---
I have reviewed this patient and I concur with the Shift Assessment completed by the Licensed Practical Nurse today this shift.
[2019-08-17] MEDS ORDERED: KENALOG 0.1 % 115 GM TOPICAL (10:54)
[2019-08-17] MEDS ORDERED: MACROBID100 MG PO (10:55)
[2019-08-17] MEDS ORDERED: MEDROL DOSE PACK4 MG PO (10:55)
[2019-08-17] MEDS ORDERED: OMNICEF300 MG PO (10:55)
--- NOTE | 2019-08-17 11:23 | MORECARE ---
CASE MANAGEMENT DISCHARGE SUMMARY PATIENT: TESS FLOOD UNIT: [id number] ADM DATE: 08/11/19 AGE: 74 : 46 SEX: F ROOM/BED: D.2236 AUTHOR: ENRIKE AKHTAR PHYSICIAN: REFERRING PHYSICIAN: CIRA NUÑEZ MD DATE OF SERVICE: 08/17/19 Discharge Plan Patient Name: TESS FLOOD Facility: [facility]:[place] : 1945 Planned Disposition: Home Hlth Svc w Plan Readm Anticipated Discharge Date: Discharge Date: Expected LOS: Initial Reviewer: [email or web address] Initial Review Date: 08/13/2019 Generated: 08/17/19 12:23 pm DCP- Discharge Planning Updated by [id number]: Whit Albarado on 08/13/19 3:[address] Patient Name: TESS FLOOD Admission Status: Elective Accout number: [id number] Admission Date: 08-11-2019 : 1945 Admission Diagnosis:ENCEPHALOPATHY, UNSPECIFIED Attending: CIRA NUÑEZ Current LOS: 2 Anticipated DC Date: Planned Disposition: Home Hlth Svc w Plan Readm Primary Insurance: [facility] MEDICARE SOLUTIONS Discharge Planning Comments: CM met with patient to discuss discharge planning, she is alone in the room. She states she plans on returning home at discharge. She states that she doesn't know who her home health agency is. She tells me I can call her daughter, Tamara, for more information. I called Tamara and she states that her mother lives with her son and grandson. Tamara states that her mother is never left alone and dependent upon them. She states they have all the DME they need to take care of her. Tamara lives across the street from her. She states that they have discussed her going to a facility, but at this time they have decided she is to come back home with [facility] of [facility]. She states they have a wc accessible van, but it has a broken window that needs fixed before they can use it again, so she will need ambulance transfer back home. CM will continue to follow and assist with discharge planning/needs. Fly Setter: Whit Albarado DCPIA - Discharge Planning Initial Assessment Updated by [email or web address]: Whit Albarado on 08/13/19 4:10 pm * Is the patient Alert and Oriented? Yes * How many steps to enter\exit or inside your home? 0/0 * PCP Dr. Bruner * Pharmacy [facility] * Preadmission Environment Acute Care Facility * Facility Name [facility] * ADLs Partial Dependent * Partial ADLs (Assistance needed) Ambulation Bathing Dressing Medication Management Toileting Transfers * Equipment Bedside Commode Hospital Bed Nelly Lift Oxygen Power Chair or Electric Scooter Wheelchair * Other Equipment Portable oxygen * List name and contact numbers for known caregivers / representatives who currently or will assist patient after discharge: Tamara Flood - [phone] or [phone] * Verbal permission to speak to the caregivers and representatives has been obtained from the patient. Yes * Community resources currently utilized Home Health * Please name any agencies selected above. [facility] for oxygen needs * Additional services required to return to the preadmission environment? No * Can the patient safely return to the preadmission environment? Yes * Has this patient been hospitalized within the prior 30 days at any hospital? Yes External Providers External Provider: [facility] Next Contact Date: Service Request Date: Service Type: Resolution: Reviewer: Comments: Coverage Notice Reviewer: [id number] Asha Albarado Notice Issued Date-Time: 08/13/2019 16:17 Notice Type: Patient Choice Letter Notice Delivered To: Family Member Relationship to Patient: Daughter Upsetter Name: Tamara Flood Delivery Method: PHONE - Phone Waleska Days: Prior Verbal Notification: Recipient Understood Notice: Yes Recipient Signature: Med Rec Note Co-signed by Attending: Coverage Notice Comment: ROMULO for [facility] Reviewer: [id number] Asha Albarado Notice Issued Date-Time: 08/17/2019 11:21 Notice Type: IM Discharge Notice Notice Delivered To: Patient Relationship to Patient: Self Upsetter Name: Delivery Method: HAND - Hand Delivered Waleska Days: Prior Verbal Notification: Recipient Understood Notice: Yes Recipient Signature: Yes Med Rec Note Co-signed by Attending: Coverage Notice Comment: IMM explained, signed, given, copy placed in [facility] DP export: 08/13/19 3:19 Patient Name: TESS FLOOD Page [id number] at 1123 All edits/amendments must be made on the electronic document DICTATION DATE: 08/17/191122 INSIDE WIRER: TOSHIA 08/17/191122 RPT#: [id number] DC DATE: STATUS: ADM IN [facility] [address] [place] [address] END OF REPORT
--- NOTE | 2019-08-17 11:40 | MORECARE ---
CASE MANAGEMENT DISCHARGE SUMMARY PATIENT: TESS FLOOD UNIT: [id number] ADM DATE: 08/11/19 AGE: 74 : 46 SEX: F ROOM/BED: D.2236 AUTHOR: ENRIKE AKHTAR PHYSICIAN: REFERRING PHYSICIAN: CIRA NUÑEZ MD DATE OF SERVICE: 08/17/19 Discharge Plan Patient Name: TESS FLOOD Facility: [facility]:[place] : 1945 Planned Disposition: Home Hlth Svc w Plan Readm Anticipated Discharge Date: Discharge Date: Expected LOS: Initial Reviewer: [id number] Initial Review Date: 08/13/2019 Generated: 08/17/19 12:39 pm Comments DCP- Discharge Planning Updated by [email or web address]: Whit Rootsaul on 08/17/19 10:[address] Discharging home today via EMS. I called Maci with [facility] and clinical faxed. I spoke with patient's daughter, Tamara, and she agrees with discharge today. She states that there will be someone at the house when she arrives via EMS. Home today with home health. CM will continue to follow and assist with discharge planning/needs. DCP- Discharge Planning Updated by [email or web address]: Whit Albarado on 08/13/19 3:[address] Patient Name: TESS FLOOD Admission Status: Elective Accout number: [id number] Admission Date: 08-11-2019 : 1945 Admission Diagnosis:ENCEPHALOPATHY, UNSPECIFIED Attending: CIRA NUÑEZ Current LOS: 2 Anticipated DC Date: Planned Disposition: Home Hlth Svc w Plan Readm Primary Insurance: [facility] MEDICARE SOLUTIONS Discharge Planning Comments: CM met with patient to discuss discharge planning, she is alone in the room. She states she plans on returning home at discharge. She states that she doesn't know who her home health agency is. She tells me I can call her daughter, Tamara, for more information. I called Tamara and she states that her mother lives with her son and grandson. Tamara states that her mother is never left alone and dependent upon them. She states they have all the DME they need to take care of her. Tamara lives across the street from her. She states that they have discussed her going to a facility, but at this time they have decided she is to come back home with [facility] of [facility]. She states they have a wc accessible van, but it has a broken window that needs fixed before they can use it again, so she will need ambulance transfer back home. CM will continue to follow and assist with discharge planning/needs. Commercial Sales Director: Whit Albarado DCPIA - Discharge Planning Initial Assessment Updated by [email or web address]: Whit Albarado on 08/13/19 4:10 pm * Is the patient Alert and Oriented? Yes * How many steps to enter\exit or inside your home? 0/0 * PCP Dr. Bruner * Pharmacy [place] * Preadmission Environment Acute Care Facility * Facility Name [facility] * ADLs Partial Dependent * Partial ADLs (Assistance needed) Ambulation Bathing Dressing Medication Management Toileting Transfers * Equipment Bedside Commode Hospital Bed Nelly Lift Oxygen Power Chair or Electric Scooter Wheelchair * Other Equipment Portable oxygen * List name and contact numbers for known caregivers / representatives who currently or will assist patient after discharge: Tamara Flood - [phone] or [phone] * Verbal permission to speak to the caregivers and representatives has been obtained from the patient. Yes * Community resources currently utilized Home Health * Please name any agencies selected above. [facility] for oxygen needs * Additional services required to return to the preadmission environment? No * Can the patient safely return to the preadmission environment? Yes * Has this patient been hospitalized within the prior 30 days at any hospital? Yes Coverage Notice Reviewer: [id number] Asha Albarado Notice Issued Date-Time: 08/13/2019 16:17 Notice Type: Patient Choice Letter Notice Delivered To: Family Member Relationship to Patient: Daughter Convict Guard Name: Tamara Flood Delivery Method: PHONE - Phone Waleska Days: Prior Verbal Notification: Recipient Understood Notice: Yes Recipient Signature: Med Rec Note Co-signed by Attending: Coverage Notice Comment: ROMULO for [facility] and [facility] Reviewer: [id number] Asha Albarado Notice Issued Date-Time: 08/17/2019 11:21 Notice Type: IM Discharge Notice Notice Delivered To: Patient Relationship to Patient: Self Convict Guard Name: Delivery Method: HAND - Hand Delivered Waleska Days: Prior Verbal Notification: Recipient Understood Notice: Yes Recipient Signature: Yes Med Rec Note Co-signed by Attending: Coverage Notice Comment: IMM explained, signed, given, copy placed in [facility] DP export: 08/17/19 10:23 Patient Name: TESS FLOOD Page [id number] at 1140 All edits/amendments must be made on the electronic document DICTATION DATE: 08/17/191138 MOLDED GRID AND PARTS INSPECTOR: TOSHIA 08/17/19 113 RPT#: [id number] DC DATE: STATUS: ADM IN [facility] [address] [place] [address] END OF REPORT
[2019-08-17 11:43] VITALS: BP 118/57
--- NOTE | 2019-08-17 15:00 | NUR ---
PATIENT THREW LUNCH PLATE AGAINST THE WALL, PLATE BROKE. PATIENT STATED FEELING ANXIOUS. CALLED DAUGHTER SHEILA, EXPLAINED WHAT HAD HAPPENED. DAUGHTER STATED THE SON WILL COME STAY WITH PATIENT UNTIL AMBULANCE ARRIVES FOR TRANSPORT. THIS NURSE TALKED TO PATIENT, WAS ABLE TO CALM PATIENT BY TALKING TO PATIENT. CALLED [facility], EXPLAINED TO MATERIAL LISTER WHAT HAPPENED AND EXPLAINED PATIENT STATED THAT SHE IS FEELING ANXIOUS. GOT VERBAL ORDER FOR 0.25 MG XANAX PO.
--- NOTE | 2019-08-17 17:55 | NUR ---
DISCHARGED PATIENT HOME VIA AMBULANCE ON STRETCHER. WENT OVER DISCHARGE INSTRUCTIONS WITH PATIENT. PT ACKNOWLEDGED INSTRUCTIONS. DENIES ANYTHING FURTHER.
--- NOTE | 2019-08-18 16:52 | MORECARE ---
CASE MANAGEMENT DISCHARGE SUMMARY PATIENT: TESS FLOOD UNIT: [id number] ADM DATE: 08/11/19 AGE: 74 : 47 SEX: F ROOM/BED: D.2236 AUTHOR: ENRIKE AKHTAR PHYSICIAN: REFERRING PHYSICIAN: CIRA NUÑEZ MD DATE OF SERVICE: 08/18/19 Discharge Plan Patient Name: TESS FLOOD Facility: [facility]:[place] : 1945 Planned Disposition: Home Hlth Svc w Plan Readm Anticipated Discharge Date: Discharge Date: 08/17/2019 Expected LOS: 0 Initial Reviewer: [email or web address] Initial Review Date: 08/13/2019 Generated: 08/18/19 5:51 pm Comments DCP- Discharge Planning Updated by [email or web address]: Whit Rootsaul on 08/17/19 10:[address] Discharging home today via EMS. I called Maci with [facility] and clinical faxed. I spoke with patient's daughter, Tamara, and she agrees with discharge today. She states that there will be someone at the house when she arrives via EMS. Home today with home health. CM will continue to follow and assist with discharge planning/needs. DCP- Discharge Planning Updated by [id number]: Whit Albarado on 08/13/19 3:[address] Patient Name: TESS FLOOD Admission Status: Elective Accout number: [id number] Admission Date: 08-11-2019 : 1945 Admission Diagnosis:ENCEPHALOPATHY, UNSPECIFIED Attending: CIRA NUÑEZ Current LOS: 2 Anticipated DC Date: Planned Disposition: Home Hlth Svc w Plan Readm Primary Insurance: [facility] MEDICARE SOLUTIONS Discharge Planning Comments: CM met with patient to discuss discharge planning, she is alone in the room. She states she plans on returning home at discharge. She states that she doesn't know who her home health agency is. She tells me I can call her daughter, Tamara, for more information. I called Tamara and she states that her mother lives with her son and grandson. Tamara states that her mother is never left alone and dependent upon them. She states they have all the DME they need to take care of her. Tamara lives across the street from her. She states that they have discussed her going to a facility, but at this time they have decided she is to come back home with [facility] of [facility]. She states they have a wc accessible van, but it has a broken window that needs fixed before they can use it again, so she will need ambulance transfer back home. CM will continue to follow and assist with discharge planning/needs. Scientific Photographer: Whit Albarado DCPIA - Discharge Planning Initial Assessment Updated by [email or web address]: Whit Albarado on 08/13/19 4:10 pm * Is the patient Alert and Oriented? Yes * How many steps to enter\exit or inside your home? 0/0 * PCP Dr. Bruner * Pharmacy [facility] * Preadmission Environment Acute Care Facility * Facility Name [facility] * ADLs Partial Dependent * Partial ADLs (Assistance needed) Ambulation Bathing Dressing Medication Management Toileting Transfers * Equipment Bedside Commode Hospital Bed Nelly Lift Oxygen Power Chair or Electric Scooter Wheelchair * Other Equipment Portable oxygen * List name and contact numbers for known caregivers / representatives who currently or will assist patient after discharge: Tamara Flood - [phone] or [phone] * Verbal permission to speak to the caregivers and representatives has been obtained from the patient. Yes * Community resources currently utilized Home Health * Please name any agencies selected above. [facility] is [facility] for oxygen needs * Additional services required to return to the preadmission environment? No * Can the patient safely return to the preadmission environment? Yes * Has this patient been hospitalized within the prior 30 days at any hospital? Yes Coverage Notice Reviewer: [id number] Asha Albarado Notice Issued Date-Time: 08/13/2019 16:17 Notice Type: Patient Choice Letter Notice Delivered To: Family Member Relationship to Patient: Daughter Assistant Project Engineer Name: Tamara Flood Delivery Method: PHONE - Phone Waleska Days: Prior Verbal Notification: Recipient Understood Notice: Yes Recipient Signature: Med Rec Note Co-signed by Attending: Coverage Notice Comment: ROMULO for [facility] Reviewer: [id number] Asha Albarado Notice Issued Date-Time: 08/17/2019 11:21 Notice Type: IM Discharge Notice Notice Delivered To: Patient Relationship to Patient: Self Assistant Project Engineer Name: Delivery Method: HAND - Hand Delivered Waleska Days: Prior Verbal Notification: Recipient Understood Notice: Yes Recipient Signature: Yes Med Rec Note Co-signed by Attending: Coverage Notice Comment: IMM explained, signed, given, copy placed in [facility] DP export: 08/17/19 10:40 Patient Name: TESS FLOOD Page 68214 at 1652 All edits/amendments must be made on the electronic document DICTATION DATE: 08/18/191650 SUPPLY CATALOGUER: TOSHIA 08/18/191650 RPT#: [id number] DC DATE:08/17/19 STATUS: DIS IN [facility] [address] [place] [address] END OF REPORT
== END 2019-08-17 17:59 | disposition home health service (06) | DRG 70 ==
LOC: D.MS 13:13
PROVIDERS: ADMIT Internal Medicine Nephrology; ATTEND Internal Medicine Nephrology
DX: G93.40 Encephalopathy, unspecified (principal); R53.2 Functional quadriplegia; Z68.42 Body mass index [BMI] 45.0-49.9, adult; N39.0 Urinary tract infection, site not specified; I10 Essential (primary) hypertension; G40.909 Epilepsy, unspecified, not intractable, without status epilepticus; E66.01 Morbid (severe) obesity due to excess calories; F41.8 Other specified anxiety disorders; M19.90 Unspecified osteoarthritis, unspecified site; E03.9 Hypothyroidism, unspecified